=== PATIENT | male | born 1945 | race Caucasian/White ===

== ENCOUNTER 2020-06-18 08:12 | Outpatient (CLI) | payer MEDICARE ==
--- NOTE | 2020-06-18 15:59 | MRI Report ---
PROCEDURE: Shoulder RT W/O INDICATIONS: RT SHLDR PAIN TECHNIQUE: Noncontrast oblique coronal T2 fast spin echo with fat saturation, oblique sagittal T1 spin echo and T2 fast spin echo with fat saturation, axial T1 spin echo and T2 fast spin echo with fat saturation t hrough the shoulder. COMPARISON: None. FINDINGS: Image quality: Excellent. Rotator cuff: Full thickness tearing of the anterior and mid supraspinatus tendon, which demonstrates medial retraction and atrophy. There are a few intact fibers of posterior per spinatus tendon which demonstrates low-grade partial-thickness articular surface tearing. There is mild T2 signal elevation throughout the anterior, mid, and posterior infraspinatus tendon at the humeral insertion site exten ding to the muscular tendinous junction, indicating tendinopathy. There is low-grade partial thicknes s articular surface tearing of the anterior and mid infraspinatus tendon at the humeral insertion sit e extending to the muscular tendinous junction. There is moderate grade partial-thickness articular s urface tearing of the superior and mid subscapularis tendon at the humeral insertion site extending t o the musculotendinous junction. Moderate subscapularis atrophy is present. Bones and bursae: No bone marrow contusions or fractures. Superior subluxation of the humeral head. Moderate acromioclavicular joint degeneration. The acromion demonstrates conventional anatomy, witho ut an os acromiale. No pathologic subacromial/subdeltoid bursal fluid is present. Capsule and soft tissues: Diffuse degenerative fraying of the glenoid labrum is present. The long hea d of the biceps tendon demonstrates full thickness tearing. The rotator interval appears normal, with out fibrosis. The coracohumeral ligament is normal in thickness. IMPRESSION: 1. Full-thickness tearing of most of the supraspinatus tendon, which demonstrates medial retraction a nd atrophy. 2. Infraspinatus tendinopathy with superimposed partial thickness tearing. 3. Moderate grade tearing of the mid/upper scapularis tendon with associated atrophy. 4. Biceps tendon tear. 5. Acromioclavicular joint osteoarthritis. 6. Diffuse degenerative fraying of the glenoid labrum. Reviewed by: Rich Raya MD on 06/18/2020 3:58 PM PST Approved by: Rich Raya MD on 06/18/2020 3:58 PM PST Station ID: [id number]
--- NOTE | 2020-06-18 16:07 | MRI Report ---
PROCEDURE: Upper Arm/Humerus RT W/O INDICATIONS: RT UPPER ARM PAIN TECHNIQUE: Noncontrast coronal and sagittal T1 spin echo and STIR; axial T1 spin echo and T2 fast spin echo with fat saturation through the right humerus. COMPARISON: MRI right shoulder dated same day. FINDINGS: Image quality: Excellent. Bones: The visualized bone marrow demonstrates normal signal on all sequences. The overlying cortex appears intact. No fractures lines or intra-osseous lesions. Soft tissues: There is fluid in the region of the long head biceps tendon of the level of the should er although this is only partially visualized. Heterotopic ossification seen in the region of the com mon extensor origin There is geographic mild edema involving the biceps muscle belly. Subcutaneous tissues appear normal as well. No soft tissue masses are present. IMPRESSION: Unremarkable appearance of the humerus. Prominent fluid in the expected region of the long head biceps tendon at the level of the shoulder ra ising possibility of rupture. Please see comparison shoulder MRI from same day. Mild biceps muscle edema raising possibility of low-grade strain, versus myositis or denervation. 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 Reviewed by: Curly Aparicio MD on 06/18/2020 4:06 PM PST Approved by: Curly Aparicio MD on 06/18/2020 4:06 PM PST Station ID: [id number]
== END 2020-06-18 08:13 | disposition home or self-care (01) ==
LOC: DI 08:12
PROVIDERS: ATTEND Nurse Practitioner Family
DX: S46.021A Laceration of muscle(s) and tendon(s) of the rotator cuff of right shoulder, initial encounter (principal); S46.821A Laceration of other muscles, fascia and tendons at shoulder and upper arm level, right arm, initial encounter; S46.221A Laceration of muscle, fascia and tendon of other parts of biceps, right arm, initial encounter; M19.011 Primary osteoarthritis, right shoulder; S43.431A Superior glenoid labrum lesion of right shoulder, initial encounter

== ENCOUNTER 2020-07-15 08:54 | Outpatient (CLI) | payer MEDICARE ==
--- NOTE | 2020-07-15 09:36 | XRAY Report ---
PROCEDURE: Shoulder 3 View RT INDICATIONS: R SHOULDER PX TECHNIQUE: 4 views of the shoulder were acquired. COMPARISON: Right shoulder MRI 06/18/2020 FINDINGS: Bones: Moderate osteoarthritic change of the glenohumeral and acromioclavicular joints. Markedly elev ated right humeral head indicative of chronic rotator cuff tear. No fractures or dislocations. No portillo spicious bony lesions. Visualized ribs appear intact. Soft tissues: No suspicious soft tissue calcifications. IMPRESSION: Findings of chronic rotator cuff tear and moderate osteoarthritis of both glenohumeral a nd acromio clavicular joints. Reviewed by: Paulie Pak MD on 07/15/2020 9:35 AM PST Approved by: Paulie Pak MD on 07/15/2020 9:35 AM PST Station ID: [id number]
== END 2020-07-15 23:59 | disposition home or self-care (01) ==
LOC: DI.N 08:54
PROVIDERS: ATTEND Orthopaedic Surgery
DX: M19.011 Primary osteoarthritis, right shoulder (principal); M75.101 Unspecified rotator cuff tear or rupture of right shoulder, not specified as traumatic

== ENCOUNTER 2020-07-22 09:27 | Outpatient (CLI) | payer MEDICARE ==
[2020-07-22 11:52] LABS: BASOPHILS # (AUTO) 0.1 10^3/uL (0.0-0.1); BASOPHILS % (AUTO) 1.4 %; EOSINOPHILS # (AUTO) 0.3 10^3/uL (0.0-0.7); EOSINOPHILS % (AUTO) 4.1 %; HGB - HEMOGLOBIN 15.6 g/dL (14.0-18.0); LYMPHOCYTES # (AUTO) 1.8 10^3/uL (1.5-3.5); LYMPHOCYTES % (AUTO) 26.5 %; MEAN CORPUSCULAR HEMOGLOBIN 30.8 pg (27.0-31.0); MEAN CORPUSCULAR HGB CONC 33.3 g/dL (32.0-36.0); MEAN CORPUSCULAR VOLUME 92.3 fL (80.0-94.0); MEAN PLATELET VOLUME 11.2 fL (7.4-11.4); MONOCYTES # (AUTO) 0.6 10^3/uL (0.0-1.0); MONOCYTES % (AUTO) 9.2 %; NEUTROPHILS # (AUTO) 3.9 10^3/uL (1.5-6.6); NEUTROPHILS % (AUTO) 58.6 %; PLT - PLATELET COUNT 183 10^3/uL (130-450); RED BLOOD COUNT 5.07 10^6/uL (4.70-6.10); RED CELL DISTRIBUTION WIDTH 13.8 % (12.0-15.0); WHITE BLOOD COUNT 6.6 x10^3/uL (4.8-10.8)
[2020-07-22 12:38] LABS: ALBUMIN 4.4 g/dL (3.2-5.5); ALBUMIN/GLOBULIN RATIO 1.7 (1.0-2.2); ALKALINE PHOSPHATASE 38 IU/L (42-121); ALT ALANINE AMINOTRANSFERASE 21 IU/L (10-60); AST ASPARTATE AMINOTRANSFERASE 20 IU/L (10-42); BUN - BLOOD UREA NITROGEN 21 mg/dL (6-20); CALCIUM 9.9 mg/dL (8.5-10.3); CARBON DIOXIDE - CO2 29 mmol/L (21-32); CHLORIDE 102 mmol/L (101-111); CHOL/HDL RATIO 4.1 (<5.0); CHOLESTEROL 150 mg/dL; GLUCOSE 113 mg/dL (70-100); HDL CHOLESTEROL 37 mg/dL; LDL CHOLESTEROL,CALCULATED 87 mg/dL; LDL/HDL RATIO 2.4 (<3.6); SODIUM 139 mmol/L (135-145); VLDL CHOLESTEROL 26 mg/dL
== END 2020-07-22 23:59 | disposition home or self-care (01) ==
LOC: LAB.WCP 09:27
PROVIDERS: ATTEND Nurse Practitioner Family
DX: F32.9 Major depressive disorder, single episode, unspecified (principal); I10 Essential (primary) hypertension; E78.5 Hyperlipidemia, unspecified
CPT/HCPCS: 36415; 80053; 80061; 83721; 84443; 85025

== ENCOUNTER 2021-05-10 08:00 | Outpatient (CLI) | payer MEDICARE ==
[2021-05-10 11:59] LABS: BASOPHILS # (AUTO) 0.1 10^3/uL (0.0-0.1); BASOPHILS % (AUTO) 1.3 %; EOSINOPHILS # (AUTO) 0.4 10^3/uL (0.0-0.7); EOSINOPHILS % (AUTO) 5.2 %; HCT - HEMATOCRIT 46.2 % (42.0-52.0); HGB - HEMOGLOBIN 15.5 g/dL (14.0-18.0); LYMPHOCYTES # (AUTO) 1.6 10^3/uL (1.5-3.5); LYMPHOCYTES % (AUTO) 22.7 %; MEAN CORPUSCULAR HEMOGLOBIN 31.3 pg (27.0-31.0); MEAN CORPUSCULAR HGB CONC 33.5 g/dL (32.0-36.0); MEAN CORPUSCULAR VOLUME 93.1 fL (80.0-94.0); MEAN PLATELET VOLUME 11.5 fL (7.4-11.4); MONOCYTES # (AUTO) 0.7 10^3/uL (0.0-1.0); MONOCYTES % (AUTO) 9.6 %; NEUTROPHILS # (AUTO) 4.2 10^3/uL (1.5-6.6); NEUTROPHILS % (AUTO) 60.9 %; PLT - PLATELET COUNT 181 10^3/uL (130-450); RED BLOOD COUNT 4.96 10^6/uL (4.70-6.10); RED CELL DISTRIBUTION WIDTH 13.8 % (12.0-15.0); WHITE BLOOD COUNT 6.9 x10^3/uL (4.8-10.8)
[2021-05-10 12:01] LABS: BILIRUBIN,URINE NEGATIVE (NEGATIVE); GLUCOSE, URINE (UA) NEGATIVE (NEGATIVE); KETONES,URINE (UA) NEGATIVE (NEGATIVE); LEUKOCYTE ESTERASE, URINE NEGATIVE (NEGATIVE); NITRITE,URINE NEGATIVE (NEGATIVE); OCCULT BLOOD,URINE NEGATIVE (NEGATIVE); PROTEIN,URINE NEGATIVE (NEGATIVE); UROBILINOGEN,URINE 0.2 (NORMAL) E.U./dL (NORMAL)
[2021-05-10 12:15] LABS: CLARITY,URINE CLEAR (CLEAR)
[2021-05-10 12:17] LABS: BACTERIA,URINE Few /HPF (None Seen); RBC,URINE 0-5 /HPF (0-5); SQUAMOUS EPITHELIAL CELL,UR FEW Squamous (<= Few); WBC,URINE 0-3 /HPF (0-3)
[2021-05-10 12:25] LABS: THYROID STIMULATING HORMONE 2.43 uIU/mL (0.34-5.60)
[2021-05-10 12:38] LABS: ALBUMIN 4.5 g/dL (3.2-5.5); ALBUMIN/GLOBULIN RATIO 1.7 (1.0-2.2); ALKALINE PHOSPHATASE 40 IU/L (42-121); ALT ALANINE AMINOTRANSFERASE 30 IU/L (10-60); AST ASPARTATE AMINOTRANSFERASE 24 IU/L (10-42); BILIRUBIN,TOTAL 0.9 mg/dL (0.2-1.0); BUN - BLOOD UREA NITROGEN 19 mg/dL (6-20); CALCIUM 9.9 mg/dL (8.5-10.3); CARBON DIOXIDE - CO2 29 mmol/L (21-32); CHLORIDE 102 mmol/L (101-111); CHOL/HDL RATIO 4.1 (<5.0); CHOLESTEROL 163 mg/dL; CREATININE 0.9 mg/dL (0.6-1.2); GFR - MDRD 83 (>89); GLUCOSE 134 mg/dL (70-100); HDL CHOLESTEROL 40 mg/dL; LDL CHOLESTEROL,CALCULATED 99 mg/dL; LDL/HDL RATIO 2.5 (<3.6); POTASSIUM 3.9 mmol/L (3.5-5.0); SODIUM 139 mmol/L (135-145); TOTAL PROTEIN 7.2 g/dL (6.7-8.2); TRIGLYCERIDES 121 mg/dL; VLDL CHOLESTEROL 24 mg/dL
== END 2021-05-10 23:59 | disposition home or self-care (01) ==
LOC: LAB.WCP 08:00
PROVIDERS: ATTEND Nurse Practitioner
DX: I10 Essential (primary) hypertension (principal); E78.5 Hyperlipidemia, unspecified; R41.3 Other amnesia
CPT/HCPCS: 36415; 80053; 80061; 81001; 82607; 83721; 84443; 85025; 87086

== ENCOUNTER 2021-05-18 08:00 | Outpatient (CLI) | payer MEDICARE ==
[2021-05-18 12:44] LABS: ESTIMATED AVERAGE GLUCOSE 131 mg/dL (70-100); HEMOGLOBIN A1c% 6.2 % (4.27-6.07)
== END 2021-05-18 23:59 ==
LOC: LAB.N 08:00
PROVIDERS: ATTEND Nurse Practitioner Family
DX: G62.9 Polyneuropathy, unspecified (principal); Z68.33 Body mass index [BMI] 33.0-33.9, adult
CPT/HCPCS: 36415; 83036

== ENCOUNTER 2021-08-24 09:01 | Outpatient (CLI) | payer MEDICARE ==
[2021-08-24 09:25] LABS: CALCIUM 9.4 mg/dL (8.5-10.3); CREATININE 0.9 mg/dL (0.6-1.2)
[2021-08-24 09:47] LABS: MICROALBUM/CREATININE RATIO,UR 5.6 ug/mg (<30.0); MICROALBUMIN,URINE 1.2 mg/dL (0-300.0)
[2021-08-24 12:11] LABS: ESTIMATED AVERAGE GLUCOSE 137 mg/dL (70-100); HEMOGLOBIN A1c% 6.4 % (4.27-6.07)
== END 2021-08-24 09:02 | disposition home or self-care (01) ==
LOC: LAB 09:01
PROVIDERS: ATTEND Nurse Practitioner
DX: E11.9 Type 2 diabetes mellitus without complications (principal)
CPT/HCPCS: 36415; 80048; 82043; 82570; 83036

== ENCOUNTER 2021-09-21 08:51 | Outpatient (CLI) | payer MEDICARE | END 2021-09-21 08:52 | disposition home or self-care (01) | LOC: LAB 08:51 | PROVIDERS: ATTEND Nurse Practitioner | DX: E11.9 Type 2 diabetes mellitus without complications (principal); G62.9 Polyneuropathy, unspecified | CPT/HCPCS: 36415; 82607; 83921 ==

== ENCOUNTER 2021-11-23 08:05 | Outpatient (CLI) | payer MEDICARE ==
[2021-11-23 08:41] LABS: CALCIUM 9.6 mg/dL (8.5-10.3); POTASSIUM 3.8 mmol/L (3.5-5.0)
[2021-11-23 09:00] LABS: THYROID STIMULATING HORMONE 2.81 uIU/mL (0.34-5.60)
[2021-11-23 12:32] LABS: ESTIMATED AVERAGE GLUCOSE 134 mg/dL (70-100); HEMOGLOBIN A1c% 6.3 % (4.27-6.07)
== END 2021-11-23 08:06 | disposition home or self-care (01) ==
LOC: LAB 08:05
PROVIDERS: ATTEND Nurse Practitioner Family
DX: E11.9 Type 2 diabetes mellitus without complications (principal); R41.3 Other amnesia
CPT/HCPCS: 36415; 80048; 82607; 83036; 84443

== ENCOUNTER 2022-03-23 09:30 | Outpatient (CLI) | payer MEDICARE ==
[2022-03-23 16:30] LABS: ESTIMATED AVERAGE GLUCOSE 140 mg/dL (70-100); HEMOGLOBIN A1c% 6.5 % (4.27-6.07)
== END 2022-03-23 09:31 | disposition home or self-care (01) ==
LOC: LAB 09:30
PROVIDERS: ATTEND Nurse Practitioner
DX: E11.9 Type 2 diabetes mellitus without complications (principal)
CPT/HCPCS: 36415; 83036

== ENCOUNTER 2022-06-23 08:29 | Outpatient (CLI) | payer MEDICARE ==
[2022-06-23 11:34] LABS: ESTIMATED AVERAGE GLUCOSE 140 mg/dL (70-100); HEMOGLOBIN A1c% 6.5 % (4.27-6.07)
== END 2022-06-23 08:30 | disposition home or self-care (01) ==
LOC: LAB 08:29
PROVIDERS: ATTEND Nurse Practitioner
DX: E11.9 Type 2 diabetes mellitus without complications (principal)
CPT/HCPCS: 36415; 83036

== ENCOUNTER 2022-09-22 09:16 | Outpatient (CLI) | payer MEDICARE ==
[2022-09-22 13:34] LABS: ESTIMATED AVERAGE GLUCOSE 137 mg/dL (70-100); HEMOGLOBIN A1c% 6.4 % (4.27-6.07)
== END 2022-09-22 09:17 | disposition home or self-care (01) ==
LOC: LAB 09:16
PROVIDERS: ATTEND Nurse Practitioner
DX: E11.9 Type 2 diabetes mellitus without complications (principal)
CPT/HCPCS: 36415; 83036

== ENCOUNTER 2022-12-29 07:56 | Outpatient (CLI) | payer MEDICARE ==
[2022-12-29 09:33] LABS: ESTIMATED AVERAGE GLUCOSE 137 mg/dL (70-100); HEMOGLOBIN A1c% 6.4 % (4.27-6.07)
== END 2022-12-29 07:57 | disposition home or self-care (01) ==
LOC: LAB 07:56
PROVIDERS: ATTEND Nurse Practitioner
DX: E11.9 Type 2 diabetes mellitus without complications (principal)
CPT/HCPCS: 36415; 83036

== ENCOUNTER 2022-12-30 15:02 | Outpatient (CLI) | payer MEDICARE, OTHER ==
--- NOTE | 2022-12-30 19:01 | XRAY Report ---
PROCEDURE: Finger(s) RT INDICATIONS: LACERATION W/O FOREIGN BODY OF RT FINGER W/O DAMAG TECHNIQUE: AP hand, 2 views of the right fourth finger(s) acquired. COMPARISON: None. FINDINGS: Bones: Heterogeneous mineralization. Mild asymmetric reticular joint space loss and scattered margin al spurring. Third MCP arthrodesis. Mildly comminuted, nondisplaced crush fracture of the fourth distal phalanx tuft with a fracture plan e extending approximately to nearly the articular surface. Soft tissues: No visible foreign bodies. No suspicious soft tissue calcifications. IMPRESSION: 1. Comminuted crush fracture of the fourth distal phalanx with close, but not definite fracture plane extension to the articular surface. 2. No foreign bodies in the soft tissues of the fourth digit. 3. Chronic polyarticular arthritic changes and third MCP surgical change. Reviewed by: Jessica Mahan MD on 12/30/2022 7:00 PM PDT Approved by: Jessica Mahan MD on 12/30/2022 7:00 PM PDT Station ID: [id number]
== END 2022-12-30 15:03 | disposition home or self-care (01) ==
LOC: DI 15:02
PROVIDERS: ATTEND Physician Assistant Medical
DX: S62.634A Displaced fracture of distal phalanx of right ring finger, initial encounter for closed fracture (principal); M19.041 Primary osteoarthritis, right hand

== ENCOUNTER 2023-06-26 07:56 | Outpatient (CLI) | payer MEDICARE ==
[2023-06-26 08:14] LABS: BASOPHILS # (AUTO) 0.1 10^3/uL (0.0-0.1); BASOPHILS % (AUTO) 1.1 %; EOSINOPHILS # (AUTO) 0.3 10^3/uL (0.0-0.7); HCT - HEMATOCRIT 46.9 % (42.0-52.0); HGB - HEMOGLOBIN 15.5 g/dL (14.0-18.0); LYMPHOCYTES # (AUTO) 2.1 10^3/uL (1.5-3.5); LYMPHOCYTES % (AUTO) 26.6 %; MEAN CORPUSCULAR HEMOGLOBIN 30.4 pg (27.0-31.0); MEAN PLATELET VOLUME 10.3 fL (7.4-11.4); MONOCYTES # (AUTO) 0.7 10^3/uL (0.0-1.0); MONOCYTES % (AUTO) 8.6 %; NEUTROPHILS # (AUTO) 4.7 10^3/uL (1.5-6.6); NEUTROPHILS % (AUTO) 59.3 %; PLT - PLATELET COUNT 185 10^3/uL (130-450); RED CELL DISTRIBUTION WIDTH 14.5 % (12.0-15.0); WHITE BLOOD COUNT 7.9 x10^3/uL (4.8-10.8)
[2023-06-26 08:46] LABS: CREATININE,URINE 238.8 mg/dL; MICROALBUM/CREATININE RATIO,UR 10.5 ug/mg (<30.0); MICROALBUMIN,URINE 2.5 mg/dL
[2023-06-26 08:47] LABS: ALBUMIN 4.2 g/dL (3.2-5.5); ALBUMIN/GLOBULIN RATIO 1.6 (1.0-2.2); ALKALINE PHOSPHATASE 46 IU/L (42-121); ALT ALANINE AMINOTRANSFERASE 20 IU/L (10-60); AST ASPARTATE AMINOTRANSFERASE 15 IU/L (10-42); BILIRUBIN,TOTAL 0.7 mg/dL (0.2-1.0); BUN - BLOOD UREA NITROGEN 20 mg/dL (6-20); CALCIUM 9.9 mg/dL (8.5-10.3); CARBON DIOXIDE - CO2 28 mmol/L (21-32); CHLORIDE 105 mmol/L (101-111); CHOL/HDL RATIO 3.4 (<5.0); CHOLESTEROL 132 mg/dL; CREATININE 0.8 mg/dL (0.6-1.3); GFR - MDRD 94 (>89); GLUCOSE 128 mg/dL (74-104); HDL CHOLESTEROL 39 mg/dL; LDL CHOLESTEROL,CALCULATED 65 mg/dL; LDL/HDL RATIO 1.7 (<3.6); POTASSIUM 3.7 mmol/L (3.5-4.5); SODIUM 140 mmol/L (135-145); TOTAL PROTEIN 6.8 g/dL (6.4-8.9); TRIGLYCERIDES 140 mg/dL (48-352); VLDL CHOLESTEROL 28 mg/dL
[2023-06-26 12:04] LABS: ESTIMATED AVERAGE GLUCOSE 120 mg/dL (70-100); HEMOGLOBIN A1c% 5.8 % (4.27-6.07)
== END 2023-06-26 07:57 | disposition home or self-care (01) ==
LOC: LAB 07:56
PROVIDERS: ATTEND Nurse Practitioner
DX: I10 Essential (primary) hypertension (principal); E78.5 Hyperlipidemia, unspecified; E11.9 Type 2 diabetes mellitus without complications; R41.3 Other amnesia; Z12.5 Encounter for screening for malignant neoplasm of prostate; G62.9 Polyneuropathy, unspecified
CPT/HCPCS: 36415; 80053; 80061; 82043; 82570; 82607; 83036; 85025; G0103; 83721; 84153

== ENCOUNTER 2024-02-26 07:34 | Outpatient (CLI) | payer MEDICARE ==
[2024-02-26 09:32] LABS: ESTIMATED AVERAGE GLUCOSE 120 mg/dL (70-100); HEMOGLOBIN A1c% 5.8 % (4.27-6.07)
== END 2024-02-26 07:35 | disposition home or self-care (01) ==
LOC: LAB 07:34
PROVIDERS: ATTEND Nurse Practitioner
DX: E11.9 Type 2 diabetes mellitus without complications (principal)
CPT/HCPCS: 36415; 83036

== ENCOUNTER 2024-03-06 13:08 | Outpatient (CLI) | payer MEDICARE ==
--- NOTE | 2024-03-06 14:56 | XRAY Report ---
PROCEDURE: Knee 4+V LT INDICATIONS: KNEE PAIN, LEFT TECHNIQUE: 4 views of the knee(s) were acquired. COMPARISON: None. FINDINGS: Bones: No fractures or dislocations. Tricompartmental osteoarthritic changes with osteophytosis and moderate medial compartment joint space narrowing. No suspicious bony lesions. Soft tissues: No knee joint effusion. No suspicious soft tissue calcifications or masses. Atheroscl erotic vascular ossifications. IMPRESSION: No acute bony abnormality. Moderate osteoarthritic changes of the knee, most pronounced within the me dial compartment. Reviewed by: Albin Rivera MD on 03/06/2024 2:54 PM PDT Approved by: Albin Rivera MD on 03/06/2024 2:54 PM PDT Station ID: [id number]
== END 2024-03-06 13:09 | disposition home or self-care (01) ==
LOC: DI.N 13:08
PROVIDERS: ATTEND Nurse Practitioner
DX: M17.12 Unilateral primary osteoarthritis, left knee (principal)

== ENCOUNTER 2025-06-03 06:30 | Inpatient (IN) ==
[2025-06-03] MEDS: LACTATED RINGERS 1,000 ML IV PRN (06:39)
--- NOTE | 2025-06-03 07:12 | OPERATIVE REPORT ---
Operative Report General Procedure Data: Operation Date: 06/03/25 07:30 Proposed Procedures p RIGHT shoulder irrigation and debridement(Right) - Zbigniew Martinez, Anesthesia Type General Pre-Op Diagnosis: Right Shoulder Surgical wound delayed healing and seroma Post Op Diagnosis: Right shoulder surgical wound infection Other Other Information/Narrative: DATE OF SURGERY: 06-03-25 SURGEON: Zbigniew Martinez CAN WORKER: JUWAN Mishra. Early Childhood Teacher Assistant was needed for help with positioning of the patient and extremity during surgery and holding retraction during surgery as part of the covarrubias portions of the procedure. PREOPERATIVE DIAGNOSIS: right shoulder delayed wound healing; right shoulder seroma POSTOPERATIVE DIAGNOSIS: Right shoulder surgical wound infection. PROCEDURES PERFORMED: Right shoulder irrigation and debridement ANESTHESIA: General plus local ESTIMATED BLOOD LOSS: approximately 25cc IMPLANT: none implanted or exchanged. COMPLICATIONS: None SPECIMEN: intra operative deep space cultures of the right shoulder (aerobic and anaerobic) DISPOSITION: PACU INDICATIONS FOR PROCEDURE: 79 year old male s/p revision shoulder arthroplasty by Dr Celestino Bustillo approximately 2 weeks ago presented to the clinic yesterday for follow up with persistent wound drainage and erythema. he had stable vitals and normal WBC but subjectively reported episodes of chills at home. Given the persistent wound drainage and concern for possible infection, we mutually agreed for surgical irrigation and debridement to at minimum facilitate wound healing but also to inspect for signs of developing infection and perform debridement if indicated. I described the usual risks of surgery including nerve injury, tendon injury, infection, stiffness, dislocation, fracture, persistence of pain, and need for further surgery and the patient consented to proceed. PROCEDURE IN DETAIL: I saw the patient in the preoperative holding area, where the operative site was marked. Consents were reviewed and the questions were answered to the patient. They were then taken back to the operating room and placed supine on the OR table with all bony prominences padded. The patient was then repositioned into the beach chair position and the arm and shoulder were prepped and draped in standard sterile fashion. Time-out was performed and preoperative antibiotics were given. Utilizing the previous incision which was partially open already I explored the surgical wound. I extended this a centimeter or 2 distally but otherwise to use the entirety of the pre-existing incision. The deltopectoral interval which was previously developed was readily evident and was identified. At this time dishwater thick fluid mixed with serosanguineous fluid was encountered which was concerning for early purulence and infection. Cultures were taken at this time. Next the prosthesis itself was identified which was found to be stable. There was a small branch of the anterior humeral circumflex vein that was tied with 0 silk as this appeared to be bleeding. The remainder of the wound had good hemostasis. We then proceeded with the debridement and thorough irrigation. I debrided any necrotic appearing tissue within the surgical wound and the majority appeared healthy. There was no apparent biofilm over the implants. We performed a thorough debridement and irrigation using a total of 7 L of sterile saline and additional 3 L of Betadine diluted saline and a bottle of Irrisept. Once thorough irrigation and debridement was complete we pulled off the first layer of our double drapes and changes to new gloves, new sterile instrumenation and suction for closure. We then irrigated the wound once more and closed the deltopectoral interval with a 0 PDS. We then closed the subcutaneous layer with 2-0 Monocryl and skin with interrupted vertical mattress nylon and geneva. Sterile Prineo Incisional wound vac was placed to facilitate wound healing and maintain sterility for expected drainage. patient was awakened from anesthesia and placed in a sling and taken to the postoperative care unit in stable condition. POSTOPERATIVE COURSE: Patient will have a planned overnight st so he can remain on IV antibiotics. I did discuss this case with the hospitalist who agreed to assist during his admission. Given that we did encounter signs of infection intraoperatively, I do think he would benefit from a PICC line and long-term IV antibiotics. Cultures results will be followed though he may likely discharge on a empiric broad-spectrum antibiotic with good staph and C. acnes coverage such as daptomycin which I discussed with the hospitalist team. The Prevena wound VAC is to remain in place for at least the first 7 days and the patient will likely follow-up in the orthopedic office next week at which time the dressing may be changed or continued depending on appearance. Shoulder can remain in the sling for comfort but I encouraged him to use his elbow hand and wrist for light movements. He could begin some gentle pendulum exercises as well for the shoulder. I called the patient's at the end of the procedure and discussed the findings and my recommendations. All their questions were answered.
[2025-06-03] MEDS ORDERED: BUPIVACAINE 0.5%-EPI 1:200000 PF 10 ML VIAL ONE (07:26)
[2025-06-03] MEDS ORDERED: fentaNYL 100 MCG/2 ML VIAL ONE (07:29)
[2025-06-03] MEDS ORDERED: MIDAZOLAM 2 MG/2 ML VIAL ONE (07:29)
[2025-06-03] MEDS ORDERED: ROCURONIUM 50 MG/5 ML VIAL ONE (07:30)
[2025-06-03] MEDS ORDERED: ONDANSETRON 4 MG/2 ML VIAL ONE (07:30)
[2025-06-03] MEDS ORDERED: ePHEDrine 50 MG/ML VIAL IVP PRN (07:36)
[2025-06-03] MEDS ORDERED: ATROPINE ABBOJECT 1 MG/10 ML SYRINGE IVP PRN (07:36)
[2025-06-03] MEDS ORDERED: NALOXONE 0.4 MG/ML VIAL IVP PRN (07:36)
[2025-06-03] MEDS ORDERED: fentaNYL 100 MCG/2 ML VIAL IVP PRN (07:36)
[2025-06-03] MEDS ORDERED: HYDROmorphone 0.5 MG/0.5 ML SYRINGE IVP PRN ×2 (07:36→14:10)
[2025-06-03] MEDS ORDERED: MORPHINE 2 MG/ML CARPUJECT IVP PRN (07:36)
[2025-06-03] MEDS ORDERED: METOCLOPRAMIDE 10 MG/2 ML VIAL IVP PRN (07:36)
[2025-06-03] MEDS ORDERED: ONDANSETRON 4 MG/2 ML VIAL IVP PRN ×2 (07:36→10:54)
--- NOTE | 2025-06-03 07:36 | ANESTHESIA PROCEDURE NOTE ---
Pre-Anesthesia VS, & Labs Diagnosis Surgical Diagnosis:: R shoulder infection? Procedure Procedure: R shoulder I&D Vitals Vital Signs: Temp Pulse Resp BP Pulse Ox 36.4 C L 63 23 137/90 H 96 06/03/25 06:57 06/03/25 06:57 06/03/25 06:57 06/03/25 07:15 06/03/25 06:57 NPO NPO: >8 hours Lab Results Current Lab Results: Laboratory Tests 06/03/25 07:12: POC Whole Bld Glucose 141 Meds/Allgy Home Medications Ambulatory Orders Medication Instructions Recorded Confirmed aspirin 81 mg tablet,delayed 81 mg PO DAILY 06/17/24 1 08/03/24 release (Adult Low Dose Aspirin) multivitamin (Daily Multi-Vitamin 1 tab PO DAILY 06/1706/03/25 tablet) atorvastatin 40 mg tablet (Lipitor) 40 mg PO QPM #90 t abs 09/02/24 06/03/25 citalopram 20 mg tablet 20 mg PO QDAY #90 tabs 09/0206/03/25 hydrochlorothiazide 25 mg tablet 25 mg PO DAILY #90 ta bs 09/02/24 06/03/25 propranolol 120 mg capsule,24 120 mg PO DAILY #90 caps 09/02/24 06/03/25 hr,extended release (Inderal LA) vitamin D3 125 mcg (5,000 1 cap PO DAILY 03/16/2505/10 unit)-vitamin K2 100 mcg capsule oxycodone-acetaminophen 10 mg-325 1 tab PO Q8H PRN marybel n #30 tabs 04/01/25 06/03/25 mg tablet glipizide 2.5 mg tablet, extended 2.5 mg PO QDAY #90 t abs 05/11/25 06/03/25 release 24 hr carbidopa ER 25 mg-levodopa 100 mg 1 tab PO BID 06/03/25 tablet,extended release cephalexin 500 mg capsule 500 mg PO TID #10 caps 05/2806/03/25 Allergies Allergies Allergy/AdvReac Type Severity Reaction Status Date / Time No Known Drug Allergies Allergy Verified 06/03/25 06:36 PFSH Active Problems All Active Problems Bleeding from surgical wound (Acute) Post-op bleeding (Acute) Loosening of shoulder joint prosthesis (Acute) Therapeutic drug monitoring (Acute) Parkinsonian features (Acute) Rotator cuff arthropathy of right shoulder (Chronic) 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) Peripheral neuropathy (Chronic) Obesity (Chronic) Depression (Chronic) Essential tremor (Chronic) Mild cognitive impairment (Chronic) Tinnitus (Chronic) Type 2 diabetes mellitus (Chronic) Benign positional vertigo (Chronic) Knee pain, left (Chronic) Foot callus (Chronic) Essential hypertension, benign (Chronic) Hyperlipidemia (Chronic) Obstructive sleep apnea of adult (Chronic) Medical History Medical History Cataract Tear of supraspinatus tendon Surgical History Surgical History History of tonsillectomy S/P right rotator cuff repair [place] teeth removed Family History Family History Father No problems noted. Sister Sleep apnea Brother Sleep apnea Social History Social History Smoking Status: Never smoker Second hand tobacco smoke exposure: No Do you dip or chew tobacco?: No Do you vape?: No Living arrangement: At home Marital Status: Living Condition: With spouse/s.o. Support Person: Yes Physical Activity: Gardening Level: Independent Do you feel safe in your home environment?: Yes History of physical, verbal, emotional, or financial abuse?: No ETOH Use: None Substance Use: denies use Retired: Yes POLST POLST CPR Status: Attempt Resuscitation (CPR) Level of Medical Intervention: Full Treatment Anesthesia Exam (Expanded) Exam General: Alert, Oriented x3 and Cooperative Dental: WNL Mouth Openin Fingerbreadth Neck Mobility: Normal Mallampati classification: II Exam Exam Vital Signs: Vital Signs x48h Temp Pulse Resp BP Pulse Ox 06/03/25 07:15 137/90 H 06/03/25 06:57 36.4 C L 63 23 194/96 H 96 Plan Plan Anesthesia Type: General Consent for Procedure(s) Verified and Reviewed: Yes Code Status: Attempt Resuscitation ASA Classification ASA classification: 3-Severe systemic disease Is this case an emergency?: No
[2025-06-03] MEDS ORDERED: TRANEXAMIC ACID 1,000 MG/10 ML VIAL ONE (08:11)
[2025-06-03] MEDS ORDERED: HYDROmorphone 1 MG/ML CARPUJECT ONE (08:26)
[2025-06-03] MEDS ORDERED: ACETAMINOPHEN 1,000 MG/100 ML 1,000 MG/100 ML BAG IV ONE (08:27)
[2025-06-03] MEDS ORDERED: TRANEXAMIC ACID IN NACL 1,000 MG/100 ML BAG IV ONE (08:29)
[2025-06-03] MEDS ORDERED: ePHEDrine 50 MG/ML VIAL IVP ONE (09:03)
[2025-06-03] MEDS ORDERED: SUGAMMADEX 200 MG/2 ML VIAL IVP ONE (09:14)
[2025-06-03] MEDS ORDERED: KETOROLAC 30 MG/ML VIAL ONE (09:31)
[2025-06-03] MEDS: ceFAZolin (2G) 2 GM in SODIUM CHLORIDE 0.9% MINIBAG 100 ML IV STA (10:42)
[2025-06-03] MEDS: LACTATED RINGERS 1,000 ML IV SCH (10:42)
[2025-06-03] MEDS ORDERED: oxyCODONE 5 MG TABLET PO PRN (10:54)
--- NOTE | 2025-06-03 11:42 | ANESTHESIA POST OP EVALUATION ---
Anesthesia Post Eval Post Anesthesia Eval Vitals: Last Vital Signs Temp 36.5 C 06/03/25 11:40 Pulse 62 06/03/25 11:40 Resp 20 06/03/25 11:40 BP 139/80 H 06/03/25 11:40 Pulse Ox 95 06/03/25 11:40 O2 Flow Rate 2 06/03/25 11:40 CV Function Including HR & BP: Stable Pain Control: Satisfactory Nausea & Vomiting: Negative Mental Status: Baseline Respiratory Status: Airway Patent Hydration Status: Satisfactory Anesthesia Complications: None
[2025-06-03] MEDS ORDERED: ACETAMINOPHEN 325 MG TABLET PO PRN (14:10)
--- NOTE | 2025-06-03 14:13 | HISTORY & PHYSICAL EXAMINATION ---
Chief Complaint Chief Complaint Chief Complaint: right shoulder incisional drainage and erythema History of Present Illness Admitted From Admitted From:: home History Obtained From Records Reviewed: ortho notes History obtained from: patient and Kylie History of Present Illness HPI Comment/Other: 04/03/2025: Right reverse total shoulder arthroplasty 05/20/2025: Revision of right shoulder arthroplasty 06/03/2025: Right shoulder irrigation and debridement 79-year-old male with past medical history of diabetes, hypertension, hyperlipidemia also with essential tremor status post above listed procedures, was seen in the orthopedics office as an outpatient yesterday. Was complaining of persistent serosanguineous drainage from the inferior aspect of the incision, saturating multiple bandages throughout the day also with subjective fever and chills. Was treated as an outpatient with 3 days of Keflex without any change to his symptomatology. After extensive discussions with the patient and his patient elected to proceed with operative washout of this prosthetic joint. This joint arthroplasty has been complicated by failure of the hardware necessitating revision of the arthroplasty approximately 6 weeks after the index procedure. This patient was in his usual state of health prior to an injury at the end of December of this year. He tripped and fell while carrying a bag of weeds sustaining a right rotator cuff injury. Was followed up with orthopedics and ultimately elected to undergo reverse total shoulder arthroplasty. Proceeded with the usual course of outpatient physical therapy but was having a lot of grinding of the joint, therefore went back to see Dr. Bustillo who obtained x-rays and noticed the failure of the prosthesis. He was then taken for revision but postoperatively had a significant amount of bleeding from the incision and then ultimately started to have serosanguineous drainage. This patient has a history of diabetes, and his arthroplasty was delayed by 1 month due to a [id number] A1c of 8.8. His hemoglobin A1c has historically been below 7. For his diabetes he takes glipizide 2.5 mg a day. He does not take metformin as he was concerned about side effects of loose stools and therefore has never tried the drug. His states that he does not follow a diabetic diet at home. Patient denies having a POLST. When asked about his CODE STATUS he said that "if the Lord wants to take me I want to go. "His Kylie is his surrogate medical decision maker. He also has 2 sons, Braulio [place] His son Braulio is a physician credentialing assistant. He lives at home with his and son. He does not smoke or drink alcohol. Meds/Allgy Home Medications Ambulatory Orders Medication Instructions Recorded Confirmed aspirin 81 mg tablet,delayed 81 mg PO DAILY 06/17/24 1 08/03/24 release (Adult Low Dose Aspirin) multivitamin (Daily Multi-Vitamin 1 tab PO DAILY 06/1706/03/25 tablet) atorvastatin 40 mg tablet (Lipitor) 40 mg PO QPM #90 t abs 09/02/24 06/03/25 citalopram 20 mg tablet 20 mg PO QDAY #90 tabs 09/0206/03/25 hydrochlorothiazide 25 mg tablet 25 mg PO DAILY #90 ta bs 09/02/24 06/03/25 propranolol 120 mg capsule,24 120 mg PO DAILY #90 caps 09/02/24 06/03/25 hr,extended release (Inderal LA) vitamin D3 125 mcg (5,000 1 cap PO DAILY 03/16/2505/10 unit)-vitamin K2 100 mcg capsule oxycodone-acetaminophen 10 mg-325 1 tab PO Q8H PRN marybel n #30 tabs 04/01/25 06/03/25 mg tablet glipizide 2.5 mg tablet, extended 2.5 mg PO QDAY #90 t abs 05/11/25 06/03/25 release 24 hr carbidopa ER 25 mg-levodopa 100 mg 1 tab PO TID 06/03/25 tablet,extended release cephalexin 500 mg capsule 500 mg PO TID #10 caps 05/2806/03/25 Allergies Allergies Allergy/AdvReac Type Severity Reaction Status Date / Time No Known Drug Allergies Allergy Verified 06/03/25 06:36 PFSH Active Problems All Active Problems (Updated 06/03/25 @ 10:36 by Zbigniew Martinez, ) Prosthetic shoulder infection (Acute) Bleeding from surgical wound (Acute) Post-op bleeding (Acute) Loosening of shoulder joint prosthesis (Acute) Therapeutic drug monitoring (Acute) Parkinsonian features (Acute) Rotator cuff arthropathy of right shoulder (Chronic) 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) Peripheral neuropathy (Chronic) Obesity (Chronic) Depression (Chronic) Essential tremor (Chronic) Mild cognitive impairment (Chronic) Tinnitus (Chronic) Type 2 diabetes mellitus (Chronic) Benign positional vertigo (Chronic) Knee pain, left (Chronic) Foot callus (Chronic) Essential hypertension, benign (Chronic) Hyperlipidemia (Chronic) Obstructive sleep apnea of adult (Chronic) Medical History Medical History Cataract Tear of supraspinatus tendon Surgical History Surgical History History of tonsillectomy S/P right rotator cuff repair [place] teeth removed Family History Family History Father No problems noted. Sister Sleep apnea Brother Sleep apnea Social History Social History Smoking Status: Never smoker Second hand tobacco smoke exposure: No Do you dip or chew tobacco?: No Do you vape?: No Living arrangement: At home Marital Status: Living Condition: With spouse/s.o. Support Person: Yes Physical Activity: Gardening Level: Independent Do you feel safe in your home environment?: Yes History of physical, verbal, emotional, or financial abuse?: No ETOH Use: None Substance Use: denies use Retired: Yes POLST Patient has POLST: No POLST on file?: No POLST CPR Status: Do Not Attempt Resuscitation (DNAR) / Allow Natural Review of Systems Status of ROS: 10 or more systems reviewed and unremarkable except as noted in history and below Prior Level of Functionality: Active and functional 79-year-old male. Exam Exam Vital Signs: Vital Signs x48h Temp Pulse Pulse Resp BP BP Pulse Ox 06/03/25 12:46 36.5 C 57 L 20 143/87 H 97 06/03/25 11:40 36.5 C 62 20 139/80 H 95 06/03/25 11:10 36.6 C 62 18 141/79 H 97 06/03/25 10:30 61 12 133/67 H 96 06/03/25 10:25 63 12 132/72 H 97 06/03/25 10:20 63 7 L 138/76 H 99 06/03/25 10:15 36.4 C L 63 7 L 142/69 H 99 06/03/25 10:10 67 14 139/67 H 90 L 06/03/25 10:05 68 14 127/58 L 98 06/03/25 10:00 63 15 119/65 100 06/03/25 09:55 62 11 L 133/65 H 99 06/03/25 09:51 36.5 C 56 L 10 L 126/65 100 O2 Flow Rate 06/03/25 12:46 2 06/03/25 11:40 2 06/03/25 11:10 2 06/03/25 10:30 2 06/03/25 10:25 06/03/25 10:20 2 06/03/25 10:15 2 06/03/25 10:10 06/03/25 10:05 7 06/03/25 10:00 7 06/03/25 09:55 7 06/03/25 09:51 Constitutional no apparent distress HENMT normocephalic Eyes conjunctivae normal Neck/C-Spine visual inspection normal Lymph no lymphadenopathy noted Chest inspection of chest normal Respiratory breath sounds equal bilaterally, normal respiratory effort and clear to auscultation bilaterally Cardiovascular normal heart rate noted Gastrointestinal abdomen normal to inspection and abdomen soft to palpation Extremities Prevena wound vac on the anterior shoulder incision. Neurology GCS 15 Psychiatry mental status grossly normal Skin skin color normal and no rash Conclusion/Plan Problem List (1) Prosthetic shoulder infection: Plan: Status post joint arthroplasty with prosthesis failure and subsequent revision. 04/03/2025: Right reverse total shoulder arthroplasty 05/20/2025: Revision of right shoulder arthroplasty 06/03/2025: Right shoulder irrigation and debridement Status post washout today. I am placing the patient empirically on vancomycin and Rocephin. Intraoperative cultures are pending. Should the patient's intraoperative cultures to be sterile we will plan for empiric coverage with daptomycin and Rocephin. Should the cultures grow something we will tailor antibiotic therapy to the organism. For the current time, patient will be maintained on vancomycin, dosing per pharmacy as well as Rocephin 1 g IV daily. Prevena wound VAC is in place on the incision. There is no erythema. There is expected swelling and ecchymosis.No leukocytosis seen on labs drawn yesterday. Discussed with Dr. Martinez of orthopedics. He will manage outpatient antibiotics. Discussed with case management today and we will make arrangements for antibiotics. RN placed PICC line today. It is functional. Low-dose aspirin for DVT prophylaxis. He will be placed on Lovenox while here in the hospital and I will recommend resumption of aspirin therapy on discharge home. (2) Type 2 diabetes mellitus with peripheral neuropathy: Plan: History of well-controlled diabetes mellitus. On glipizide 2.5 mg a day as an outpatient. Had 1 value of 8% as a POC test. This is probably spurious. It did however unfortunately delay the patient's total shoulder arthroplasty for about a month. Last hemoglobin A1c 6.6% in February of this year. I will repeat the value in the morning. Holding glipizide for this admission. Placing the patient on diabetic diet and sliding scale insulin. (3) Parkinsonian features: Plan: Chronic tremor. He is currently on a Sinemet trial. He will continue this in addition to his propranolol. (4) Essential hypertension, benign: Plan: I will resume home meds. Will place hold parameters. (5) Hyperlipidemia: Plan: Will resume home statin. Plan I have spent 90 minutes in the care of this patient today. This includes time [id number], review and ordering of diagnostic imaging and laboratory studies and consultation with other providers. Monitoring the patient's signs symptoms, evaluation of medication effectiveness and patient's response to treatment. Lab Results Lab results reviewed: Yes
[2025-06-03] MEDS: SODIUM CHLORIDE FLUSH 0.9% 10 ML SYRINGE IVP SCH (15:25)
[2025-06-03] MEDS: VANCOMYCIN INJ 2 GM in SODIUM CHLORIDE 0.9% 500 ML IV ONE (15:25)
[2025-06-03] MEDS: INSULIN LISPRO 300 UNIT/3 ML PEN SUBQ SCH (16:42)
--- NOTE | 2025-06-03 17:22 | PHARMACY PROGRESS NOTE ---
Best Possible Medication History Admit Date and Time: 06/03/25 1410 Home Medications Medication Instructions Recorded Confirmed Type aspirin 81 mg tablet,delayed 81 mg PO DAILY 06/17/24 1 08/03/24 History release (Adult Low Dose Aspirin) multivitamin (Daily Multi-Vitamin 1 tab PO DAILY 06/1706/03/25 History tablet) atorvastatin 40 mg tablet (Lipitor) 40 mg PO QPM #90 t abs 09/02/24 06/03/25 Rx hydrochlorothiazide 25 mg tablet 25 mg PO DAILY #90 ta bs 09/02/24 06/03/25 Rx propranolol 120 mg capsule,24 120 mg PO DAILY #90 caps 09/02/24 06/03/25 Rx hr,extended release (Inderal LA) vitamin D3 125 mcg (5,000 1 cap PO DAILY 03/16/2505/10 History unit)-vitamin K2 100 mcg capsule oxycodone-acetaminophen 10 mg-325 1 tab PO Q8H PRN marybel n #30 tabs 04/01/25 06/03/25 Rx mg tablet carbidopa 25 mg-levodopa 100 mg 1 tab PO TID 06/03/25 06/03/25 History tablet citalopram 20 mg tablet 20 mg PO DAILY 06/03/2505/10 History glipizide 2.5 mg tablet, extended 2.5 mg PO DAILY 05/1006/03/25 History release 24 hr Processed by: Pharmacy Medications reviewed in ED?: No Medication History completed: Yes Patient Interview: Completed (BY SURGERY RN) Secondary Source(s): Written medication list and Insurance records [facility] Statement: As the person ultimately responsible for medication therapy, providers are able to order a medication from an existing home medication list in [facility] via the "Reconcile Routine" prior to Confirmation of that medication by it desktop support specialist. Such practice is discouraged except when the physician, in their clinical judgment, deems that a medical need exists for a medication without regard to previous use.
[2025-06-03] MEDS ORDERED: PROPOFOL 200 MG/20 ML VIAL IVP ONE (17:35)
[2025-06-03 18:25] LABS: BUN - BLOOD UREA NITROGEN 21.0 mg/dL (6-20); CARBON DIOXIDE - CO2 28.0 mmol/L (21-32); CREATININE 0.9 mg/dL (0.6-1.3); GFR - MDRD 82.0 (>89)
[2025-06-03] MEDS: CARBIDOPA/LEVODOPA 25 MG/100 MG TABLET PO SCH (18:51)
--- NOTE | 2025-06-03 19:00 | PHARMACY PROGRESS NOTE ---
Vancomycin Therapy Monitoring Patient Information Vancomycin Pt Height (inches): 71 Vancomycin Patient Weight (kg): 102.8 Vanco Rx Serum Creatinine (mg/dL): 1 Vancomycin Therapy BUN (mg/dL): 21 Vancomycin Therapy Calculated Creatinine Cl (ml/min): 63 Concurrent Antibiotics: CEFTRIAXONE Vancomycin Therapy Goals Treatment Indication: JOINT INFECTION Vancomycin Target Range: Vancomycin AUC Target Range 400-600 mcg*h/ml Assessment of Current Therapy Vancomycin Loading Dose (GM, if applicable): 2G Current Vancomycin Maintenance Regimen (if applicable): 1G Q12H
[2025-06-03] MEDS: oxyCODONE 5 MG TABLET PO PRN (22:37)
[2025-06-03] MEDS: PROPRANOLOL 40 MG TABLET PO SCH (22:37)
[2025-06-03] MEDS: ATORVASTATIN 40 MG TABLET PO SCH (22:37)
[2025-06-04] MEDS: VANCOMYCIN INJ 1 GM in SODIUM CHLORIDE 0.9% 250 ML IV SCH (05:59)
[2025-06-04 06:23] LABS: HCT - HEMATOCRIT 34.0 % (42.0-52.0); HGB - HEMOGLOBIN 11.4 g/dL (14.0-18.0); MEAN PLATELET VOLUME 11.1 fL (7.4-11.4); NRBC ABSOLUTE COUNT (AUTO) 0.00 x10^3/uL; NUCLEATED RED BLOOD CELLS AUTO 0.0 /100WBC; PLT - PLATELET COUNT 191 10^3/uL (130-450); RED CELL DISTRIBUTION WIDTH 13.8 % (12.0-15.0)
[2025-06-04 06:54] LABS: BUN - BLOOD UREA NITROGEN 17.0 mg/dL (6-20); CARBON DIOXIDE - CO2 28.0 mmol/L (21-32); CREATININE 0.9 mg/dL (0.6-1.3); GFR - MDRD 82.0 (>89)
--- NOTE | 2025-06-04 06:54 | POST OP PROGRESS NOTE ---
Subjective General Admit Date: 06/03/25 Procedure Performed: right shoulder irrigation and debridement, DOS 06-03-25 Other Other Information/Narrative: postop day 1 from I&D of right rTSA. stable ,no acute events. he reports constant moderate level pain in the shoulder but denies any new numbness or tingling. had PICC line placed yesterday prevena incisional wound vac maintaining suction Ortho Surgical Progress Note Problem List Problem List: right shoulder prosthetic joint infection s/p I&D continue IV antibiotics, likely 4-6 weeks IV, could consider transition to PO depending on culture results. discussed case with hospitalist team and mutual agreement to plan for IV daptomycin and Rocephin which should have good staph and C. acnes coverage as we await definitive cultures. prevena incisional wound vac can remain in place and can be managed at home by the patient.though he was instructed to return or call the office if he has concerns. this can be evaluated in ortho clinic next week. Discharge Instructions: daily IV Antibiotics via PICC line as discussed with medical team. maintain prevena wound vac ortho clinic follow up 1 week Exam Exam Vital Signs: Vital Signs x48h Temp Pulse Resp BP Pulse Ox O2 Flow Rate 06/04/25 06:03 154/81 H 06/04/25 05:00 36.7 C 63 16 161/84 H 99 1 06/04/25 00:25 36.9 C 67 16 148/74 H 96 1 R shoulder prevena incision wound vac clean dry intact with good suction maintained. no surrounding erythema. NVI distally.
[2025-06-04] MEDS: CITALOPRAM HYDROBROMIDE 20 MG TABLET PO SCH (08:14)
[2025-06-04] MEDS: MULTIVITAMIN TABLET PO SCH (08:14)
[2025-06-04] MEDS: cefTRIAXone 1 GM VIAL IVP SCH (08:50)
--- NOTE | 2025-06-04 10:28 | PROVIDER PROGRESS NOTE ---
Subjective Prog Note Date Prog Note Date: 06/04/25 Subjective Subjective: He is still having significant pain in his shoulder, anteriorly and down into his humerus. no fevers. Current Medications Current Medications Current Medications: Current Medications Generic Name Dose Route Start Last Admin Trade Name Freq PRN Reason Stop Dose Admin Acetaminophen 650 mg 06/03/25 14:10 Acetaminophen 325 Mg Tablet PO Q4HR PRN Pain 1 to 4, or Fever Atorvastatin Calcium 40 mg 06/03/25 21:00 06/03/25 22:37 Atorvastatin 40 Mg Tablet PO 40 mg QPM JOSÉ LUIS Administration Carbidopa/Levodopa 1 tab 06/03/25 18:00 06/04/25 06:01 Carbidopa/Levodopa 25 Mg/100 Mg Tablet PO 1 tab TID JOSÉ LUIS Administration Ceftriaxone Sodium 1 gm 06/04/25 09:00 06/04/25 08:50 Ceftriaxone 1 Gm Vial IVP 1 gm DAILY JOSÉ LUIS Administration Citalopram Hydrobromide 20 mg 06/04/25 09:00 06/04/25 08:14 Citalopram Hydrobromide 20 Mg Tablet PO 20 mg DAILY JOSÉ LUIS Administration Hydrochlorothiazide 25 mg 06/04/25 09:00 06/04/25 08:14 Hydrochlorothiazide 25 Mg Tablet PO 25 mg DAILY JOSÉ LUIS Administration Hydromorphone HCl 0.5 mg 06/03/25 14:10 Hydromorphone 0.5 Mg/0.5 Ml Syringe IVP Q2H PRN Pain 8 to 10 Vancomycin HCl 1 gm/ Sodium 250 mls @ 167 mls/hr 06/04/25 06:00 06/04/25 05:59 Chloride IV 167 mls/hr Q12H JOSÉ LUIS Administration Insulin Human Lispro 1 - 5 unit 06/03/25 17:00 06/04/25 08:13 Insulin Lispro 300 Unit/3 Ml Pen SUBQ Not Given 0800,1200,1700,2100 [facility] Protocol Multivitamins 1 tab 06/04/25 08:00 06/04/25 08:14 Multivitamin Tablet PO 1 tab DAILYWM JOSÉ LUIS Administration Ondansetron HCl 4 mg 06/03/25 10:54 Ondansetron 4 Mg/2 Ml Vial IVP Q6HR PRN Nausea / Vomiting Oxycodone HCl 5 mg 06/03/25 14:10 06/04/25 06:01 Oxycodone 5 Mg Tablet PO 5 mg Q4HR PRN Administration Pain 5 to 7 Polyethylene Glycol 17 gm 06/04/25 09:00 06/04/25 08:14 Polyethylene Glycol 3350 17 Gm Packet PO 17 gm DAILY JOSÉ LUIS Administration Propranolol HCl 40 mg 06/03/25 22:00 06/04/25 06:01 Propranolol 40 Mg Tablet PO 40 mg TID JOSÉ LUIS Administration Sodium Chloride 10 ml 06/03/25 14:10 Sodium Chloride Flush 0.9% 10 Ml Syringe IVP PRN PRN NEEDED PER PROVIDER ORDERS Sodium Chloride 10 ml 06/03/25 17:00 06/04/25 08:15 Sodium Chloride Flush 0.9% 10 Ml Syringe IVP 10 ml 0100,0900,1700 JOSÉ LUIS Administration Objective Vital Signs/Intake & Output Vital Signs: Vital Signs x48h Temp Pulse Resp BP Pulse Ox O2 Flow Rate 06/04/25 06:03 154/81 H 06/04/25 05:00 36.7 C 63 16 161/84 H 99 1 Intake & Output: Intake & Output 06/01/25 06/02/25 06/03/25 06/04/25 23:59 23:59 23:59 23:59 Intake Total 1999 360 / 360 Balance 1999 360 / 360 Weight (kg) 102.5 kg Objective General Appearance: positive No acute distress and Alert Eyes Bilateral: positive Normal inspection ENT: positive ENT inspection nml Neck: positive Nml inspection Respiratory: positive No respiratory distress and Breath sounds nml Cardiovascular: positive Regular rate & rhythm Abdomen: positive No distention Skin: positive Color nml Extremities: positive Other (prevena vac in place, ecchymosis and swelling in the right shoulder, down onto right upper arm. ) Neurologic/Psychiatric: positive Oriented x3 Lab Results 06/04/25 05:45 06/04/25 05:45 Other Labs: Lab Results x24hrs 06/04/25 06/04/25 06/03/25 Range/Units 07:45 05:45 20:30 WBC 8.1 (4.8-10.8) x10^3/uL RBC 3.63 L (4.70-6.10) 10^6/uL Hgb 11.4 L (14.0-18.0) g/dL Hct 34.0 L (42.0-52.0) % MCV 93.7 (80.0-94.0) fL MCH 31.4 H (27.0-31.0) pg MCHC 33.5 (32.0-36.0) g/dL RDW 13.8 (12.0-15.0) % Plt Count 191 (130-450) 10^3/uL MPV 11.1 (7.4-11.4) fL Neut # (Auto) 5.7 (1.5-6.6) 10^3/uL Lymph # (Auto) 1.4 L (1.5-3.5) 10^3/uL [place] # (Auto) 0.8 (0.0-1.0) 10^3/uL Eos # (Auto) 0.2 (0.0-0.7) 10^3/uL Baso # (Auto) 0.1 (0.0-0.1) 10^3/uL Absolute Nucleated RBC 0.00 x10^3/uL Nucleated RBC % 0.0 /100WBC Sodium 139 (135-145) mmol/L Potassium 3.7 (3.5-4.5) mmol/L Chloride 105 (101-111) mmol/L Carbon Dioxide 28 (21-32) mmol/L Anion Gap 6.0 (6-13) BUN 17 (6-20) mg/dL Creatinine 0.9 (0.6-1.3) mg/dL Estimated GFR (MDRD) 82 L (>89) Glucose 135 H (74-104) mg/dL POC Whole Bld Glucose 132 145 (70-100) mg/dL Calcium 8.9 (8.5-10.3) mg/dL Last Dose Date UNK Last Dose Time UNK Random Vancomycin 7.0 ug/mL 06/03/25 06/03/25 06/03/25 Range/Units 17:47 16:30 11:15 WBC (4.8-10.8) x10^3/uL RBC (4.70-6.10) 10^6/uL Hgb (14.0-18.0) g/dL Hct (42.0-52.0) % MCV (80.0-94.0) fL MCH (27.0-31.0) pg MCHC (32.0-36.0) g/dL RDW (12.0-15.0) % Plt Count (130-450) 10^3/uL MPV (7.4-11.4) fL Neut # (Auto) (1.5-6.6) 10^3/uL Lymph # (Auto) (1.5-3.5) 10^3/uL [place] # (Auto) (0.0-1.0) 10^3/uL Eos # (Auto) (0.0-0.7) 10^3/uL Baso # (Auto) (0.0-0.1) 10^3/uL Absolute Nucleated RBC x10^3/uL Nucleated RBC % /100WBC Sodium 139 (135-145) mmol/L Potassium 3.6 (3.5-4.5) mmol/L Chloride 104 (101-111) mmol/L Carbon Dioxide 28 (21-32) mmol/L Anion Gap 7.0 (6-13) BUN 21 H (6-20) mg/dL Creatinine 0.9 (0.6-1.3) mg/dL Estimated GFR (MDRD) 82 L (>89) Glucose 150 H (74-104) mg/dL POC Whole Bld Glucose 95 157 (70-100) mg/dL Calcium 9.2 (8.5-10.3) mg/dL Last Dose Date Last Dose Time Random Vancomycin ug/mL Assessment/Plan Problem List (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 04/03/2025: Right reverse total shoulder arthroplasty 05/20/2025: Revision of right shoulder arthroplasty 06/03/2025: Right shoulder irrigation and debridement the patient is on empiric vancomycin and Rocephin. Intraoperative cultures are pending. Gram stain shows many WBCs and no organisms. Should the patient's intraoperative cultures to be sterile we will plan for empiric coverage with daptomycin and Rocephin. Should the cultures grow something we will tailor antibiotic therapy to the organism. For the current time, patient will be maintained on vancomycin, dosing per pharmacy as well as Rocephin 2 g IV daily. Prevena wound VAC is in place on the incision. There is no erythema. There is expected swelling and ecchymosis.No leukocytosis seen on labs. Discussed with Dr. Martinez of orthopedics. He will manage outpatient antibiotics. Discussed with case management today and we will make arrangements for antibiotics. Still awaiting cultures, but moving forward with dc planning. Left sided PICC is functional. Pain is not well-controlled. At home he does take Tylenol and ibuprofen for pain. As well as oxycodone. We will start with some multimodal pain control. I have scheduled Tylenol 1 g 3 times daily, I have also scheduled ketorolac 15 mg IV every 6 hours x 20 doses. I am also adding gabapentin 100 mg 3 times daily. in addition to this, PRN oxycodone. I am not sure that topical lidocaine would be helpful here, due to majority of the area being covered by prevena dressing Low-dose aspirin for DVT prophylaxis. He will be placed on Lovenox while here in the hospital and I will recommend resumption of aspirin therapy on discharge home. (2) Type 2 diabetes mellitus with peripheral neuropathy: Impression: History of well-controlled diabetes mellitus. On glipizide 2.5 mg a day as an outpatient. Had 1 value of 8% as a POC test. This is probably spurious. It did however unfortunately delay the patient's total shoulder arthroplasty for about a month. Last hemoglobin A1c 6.6% in February of this year. Repeated today, shows reasonable control. Blood sugar control here has been adequate with low dose SSI. 08/27/24 03/02/25 06/03/25 08:18 07:27 20:30 POC Whole Bld Glucose 145 Hemoglobin A1c % 6.3 H 6.6 H 06/04/25 06/04/25 06/04/25 05:45 07:45 11:37 POC Whole Bld Glucose 132 130 Hemoglobin A1c % 5.9 Holding glipizide for this admission. (3) Parkinsonian features: Impression: Chronic tremor. He is currently on a Sinemet trial for 3 mo through his neurologist, Dr Karen Cesar in [place]. I have restarted home propranolol as well as home Sinemet. Dr Cesar wanted some labs drawn. I have ordered these for the patient. These will be drawn in the ship [place] ESR and CRP are on the panel. I have ordered them, but I expect them to be elevated, so will need eventual repeat on these. Ordered : B12, methylmalonic acid, TSH, ESR, CRP, Celiac panel, B6, Vit E level. Checked his tremor today. yesterday, immediately post op, I noticed it at rest, today not present at rest, but it is most def present when he attempts to write his name. . (4) Essential hypertension, benign: Impression: I have resumed home meds Hydrochlorothiazide, 25 mg daily, propranolol LA 120 mg daily. (5) Hyperlipidemia: Impression: Have resumed home statin.Lipitor 40 mg daily. This patient's diagnosis and treatment plan was discussed this AM with attending physician as a part of multi disciplinary rounding meeting I have spent 52 minutes in the care of this patient today. This includes time [id number], review and ordering of diagnostic imaging and laboratory studies and consultation with other providers. Monitoring the patient's signs symptoms, evaluation of medication effectiveness and patient's response to treatment.
[2025-06-04] MEDS: KETOROLAC 15 MG/ML VIAL IVP SCH (13:23)
[2025-06-04 13:24] LABS: ESTIMATED AVERAGE GLUCOSE 123 mg/dL (70-100); HEMOGLOBIN A1c% 5.9 % (4.27-6.07)
[2025-06-04] MEDS: ACETAMINOPHEN 500 MG TABLET PO SCH (14:40)
[2025-06-04] MEDS: GABAPENTIN 100 MG CAPSULE PO SCH (14:41)
[2025-06-04] MEDS: VANCOMYCIN INJ 1 GM, VANCOMYCIN INJ 500 MG in SODIUM CHLORIDE 0.9% 500 ML IV SCH (17:20)
[2025-06-05 06:34] LABS: HCT - HEMATOCRIT 35.1 % (42.0-52.0); HGB - HEMOGLOBIN 11.2 g/dL (14.0-18.0); MEAN PLATELET VOLUME 10.3 fL (7.4-11.4); NRBC ABSOLUTE COUNT (AUTO) 0.00 x10^3/uL; NUCLEATED RED BLOOD CELLS AUTO 0.0 /100WBC; PLT - PLATELET COUNT 207 10^3/uL (130-450); RED CELL DISTRIBUTION WIDTH 13.8 % (12.0-15.0)
[2025-06-05 06:54] LABS: BUN - BLOOD UREA NITROGEN 18.0 mg/dL (6-20); CARBON DIOXIDE - CO2 30.0 mmol/L (21-32); CREATININE 0.9 mg/dL (0.6-1.3); CRP - C-REACTIVE PROTEIN 2.5 mg/dL (<0.5); GFR - MDRD 82.0 (>89)
--- NOTE | 2025-06-05 08:01 | POST OP PROGRESS NOTE ---
Subjective General Admit Date: 06/03/25 Procedure Performed: right shoulder irrigation and debridement, DOS 06-03-25 Other Other Information/Narrative: no events overnight. he reports improvement in right shoulder pain and states he feels able to move it again. hes very happy with the pain relief. Stayed the night for continued IV antibiotics while awaiting approval for transition to outpatient IV abx. Ortho Surgical Progress Note Problem List Problem List: right reverse shoulder prosthesis joint infection, s/p surgical I&D on 06-03, doing well on IV antibiotics and clinically stable with improved pain, no signs of worsenning infection. continue prevena wound vac contiue IV antibiotics, with plan to transition to outpatient IV via PICC line which is already been placed, disposition per medical team, recommend orthopedic outpatient follow up next week Exam Exam Vital Signs: Vital Signs x48h Temp Pulse Resp BP Pulse Ox 06/05/25 00:03 36.6 C 52 L 18 143/74 H 97 R shoulder prevena incision wound vac clean dry intact with good suction maintained. no surrounding erythema. NVI distally.
[2025-06-05] MEDS: cefTRIAXone 2 GM in SODIUM CHLORIDE 0.9% MINIBAG 100 ML IV SCH (08:52)
--- NOTE | 2025-06-05 10:28 | PROVIDER PROGRESS NOTE ---
Subjective Prog Note Date Prog Note Date: 06/05/25 Subjective Subjective: I asked him how is his pain control, and he replies "wonderful". meds started yesterday seem to be working. I spoke with his later on in the day in the [place], and she is relieved about his degree of pain relief. Current Medications Current Medications Current Medications: Current Medications Generic Name Dose Route Start Last Admin Trade Name Freq PRN Reason Stop Dose Admin Acetaminophen 650 mg 06/03/25 14:10 Acetaminophen 325 Mg Tablet PO Q4HR PRN Pain 1 to 4, or Fever Acetaminophen 1,000 mg 06/04/25 14:00 06/05/25 06:18 Acetaminophen 500 Mg Tablet PO 1,000 mg TID JOSÉ LUIS Administration Atorvastatin Calcium 40 mg 06/03/25 21:00 06/04/25 21:22 Atorvastatin 40 Mg Tablet PO 40 mg QPM JOSÉ LUIS Administration Carbidopa/Levodopa 1 tab 06/03/25 18:00 06/05/25 06:15 Carbidopa/Levodopa 25 Mg/100 Mg Tablet PO 1 tab TID JOSÉ LUIS Administration Citalopram Hydrobromide 20 mg 06/04/25 09:00 06/05/25 07:59 Citalopram Hydrobromide 20 Mg Tablet PO 20 mg DAILY JOSÉ LUIS Administration Gabapentin 100 mg 06/04/25 14:00 06/05/25 06:15 Gabapentin 100 Mg Capsule PO 100 mg TID JOSÉ LUIS Administration Hydrochlorothiazide 25 mg 06/04/25 09:00 06/05/25 07:59 Hydrochlorothiazide 25 Mg Tablet PO 25 mg DAILY JOSÉ LUIS Administration Hydromorphone HCl 0.5 mg 06/03/25 14:10 Hydromorphone 0.5 Mg/0.5 Ml Syringe IVP Q2H PRN Pain 8 to 10 Ceftriaxone Sodium 2 gm/ 100 mls @ 200 mls/hr 06/05/25 09:00 06/05/25 08:52 Sodium Chloride IV 200 mls/hr DAILY JOSÉ LUIS Administration Vancomycin HCl 1 gm/ 500 mls @ 250 mls/hr 06/04/25 18:00 06/05/25 08:30 Vancomycin HCl 500 mg/ Sodium IV Infused Chloride Q12H JOSÉ LUIS Infusion Insulin Human Lispro 1 - 5 unit 06/03/25 17:00 06/05/25 07:58 Insulin Lispro 300 Unit/3 Ml Pen SUBQ Not Given 0800,1200,1700,2100 [facility] Protocol Ketorolac Tromethamine 15 mg 06/04/25 13:00 06/05/25 06:21 Ketorolac 15 Mg/Ml Vial IVP 06/09/25 06:01 15 mg Q6HR JOSÉ LUIS Administration Multivitamins 1 tab 06/04/25 08:00 06/05/25 07:59 Multivitamin Tablet PO 1 tab DAILYWM JOSÉ LUIS Administration Ondansetron HCl 4 mg 06/03/25 10:54 Ondansetron 4 Mg/2 Ml Vial IVP Q6HR PRN Nausea / Vomiting Oxycodone HCl 5 mg 06/03/25 14:10 06/04/25 06:01 Oxycodone 5 Mg Tablet PO 5 mg Q4HR PRN Administration Pain 5 to 7 Polyethylene Glycol 17 gm 06/04/25 09:00 06/05/25 07:59 Polyethylene Glycol 3350 17 Gm Packet PO 17 gm DAILY JOSÉ LUIS Administration Propranolol HCl 40 mg 06/03/25 22:00 06/05/25 06:15 Propranolol 40 Mg Tablet PO 40 mg TID JOSÉ LUIS Administration Sodium Chloride 10 ml 06/03/25 14:10 Sodium Chloride Flush 0.9% 10 Ml Syringe IVP PRN PRN NEEDED PER PROVIDER ORDERS Sodium Chloride 10 ml 06/03/25 17:00 06/05/25 07:59 Sodium Chloride Flush 0.9% 10 Ml Syringe IVP 10 ml 0100,0900,1700 JOSÉ LUIS Administration Objective Vital Signs/Intake & Output Reviewed Vital Signs: Yes Vital Signs: Vital Signs x48h Temp Pulse Resp BP Pulse Ox 06/05/25 08:00 36.6 C 54 L 16 152/78 H 96 Intake & Output: Intake & Output 06/02/25 06/03/25 06/04/25 06/05/25 23:59 23:59 23:59 23:59 Intake Total 1999 1480 / 1480 Balance 1999 1480 / 1480 Weight (kg) 102.5 kg Objective General Appearance: positive No acute distress and Alert Eyes Bilateral: positive Normal inspection ENT: positive ENT inspection nml Neck: positive Nml inspection Respiratory: positive No respiratory distress and Breath sounds nml Cardiovascular: positive Regular rate & rhythm Abdomen: positive No distention Skin: positive Color nml Extremities: positive Other (prevena vac in place, ecchymosis and swelling in the right shoulder, down onto right upper arm. ) Neurologic/Psychiatric: positive Oriented x3 Lab Results 06/05/25 06:25 06/05/25 06:25 Other Labs: Lab Results x24hrs 06/05/25 06/05/25 06/04/25 Range/Units 07:50 06:25 20:34 WBC 6.8 (4.8-10.8) x10^3/uL RBC 3.73 L (4.70-6.10) 10^6/uL Hgb 11.2 L (14.0-18.0) g/dL Hct 35.1 L (42.0-52.0) % MCV 94.1 H (80.0-94.0) fL MCH 30.0 (27.0-31.0) pg MCHC 31.9 L (32.0-36.0) g/dL RDW 13.8 (12.0-15.0) % Plt Count 207 (130-450) 10^3/uL MPV 10.3 (7.4-11.4) fL Neut # (Auto) 3.8 (1.5-6.6) 10^3/uL Lymph # (Auto) 1.9 (1.5-3.5) 10^3/uL [place] # (Auto) 0.6 (0.0-1.0) 10^3/uL Eos # (Auto) 0.4 (0.0-0.7) 10^3/uL Baso # (Auto) 0.1 (0.0-0.1) 10^3/uL Absolute Nucleated RBC 0.00 x10^3/uL Nucleated RBC % 0.0 /100WBC ESR 34 H (0-20) mm/Hr Sodium 138 (135-145) mmol/L Potassium 3.6 (3.5-4.5) mmol/L Chloride 102 (101-111) mmol/L Carbon Dioxide 30 (21-32) mmol/L Anion Gap 6.0 (6-13) BUN 18 (6-20) mg/dL Creatinine 0.9 (0.6-1.3) mg/dL Estimated GFR (MDRD) 82 L (>89) Glucose 129 H (74-104) mg/dL POC Whole Bld Glucose 138 131 (70-100) mg/dL Estimat Average Glucose (70-100) mg/dL Hemoglobin A1c % (4.27-6.07) % Calcium 9.4 (8.5-10.3) mg/dL C-Reactive Protein 2.5 H (<0.5) mg/dL Vitamin B12 353 (180-914) pg/mL TSH 2.33 (0.34-5.60) uIU/mL 06/04/25 06/04/25 06/04/25 Range/Units 16:34 11:37 05:45 WBC (4.8-10.8) x10^3/uL RBC (4.70-6.10) 10^6/uL Hgb (14.0-18.0) g/dL Hct (42.0-52.0) % MCV (80.0-94.0) fL MCH (27.0-31.0) pg MCHC (32.0-36.0) g/dL RDW (12.0-15.0) % Plt Count (130-450) 10^3/uL MPV (7.4-11.4) fL Neut # (Auto) (1.5-6.6) 10^3/uL Lymph # (Auto) (1.5-3.5) 10^3/uL [place] # (Auto) (0.0-1.0) 10^3/uL Eos # (Auto) (0.0-0.7) 10^3/uL Baso # (Auto) (0.0-0.1) 10^3/uL Absolute Nucleated RBC x10^3/uL Nucleated RBC % /100WBC ESR (0-20) mm/Hr Sodium (135-145) mmol/L Potassium (3.5-4.5) mmol/L Chloride (101-111) mmol/L Carbon Dioxide (21-32) mmol/L Anion Gap (6-13) BUN (6-20) mg/dL Creatinine (0.6-1.3) mg/dL Estimated GFR (MDRD) (>89) Glucose (74-104) mg/dL POC Whole Bld Glucose 119 130 (70-100) mg/dL Estimat Average Glucose 123 H (70-100) mg/dL Hemoglobin A1c % 5.9 (4.27-6.07) % Calcium (8.5-10.3) mg/dL C-Reactive Protein (<0.5) mg/dL Vitamin B12 (180-914) pg/mL TSH (0.34-5.60) uIU/mL ABX Reporting Has patient been on IV antibiotics over the past 48 hours?: Yes Assessment/Plan Problem List (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 04/03/2025: Right reverse total shoulder arthroplasty 05/20/2025: Revision of right shoulder arthroplasty 06/03/2025: Right shoulder irrigation and debridement the patient is on empiric vancomycin and Rocephin. Intraoperative cultures are pending. Gram stain shows many WBCs and no organisms. Should the patient's intraoperative cultures to be sterile we will plan for empiric coverage with daptomycin and Rocephin. Should the cultures grow something we will tailor antibiotic therapy to the organism. For the current time, patient will be maintained on vancomycin, dosing per pharmacy as well as Rocephin 2 g IV daily. Prevena wound VAC is in place on the incision. There is no erythema. There is expected swelling and ecchymosis.No leukocytosis seen on labs. Discussed with Dr. Martinez of orthopedics. He will manage outpatient antibiotics. Discussed with case management today and with logistics of authorization and a holiday weekend, patient can depart here on06/08 and do first OP infusion on 06/09 for abx, . Still awaiting cultures, but moving forward with dc planning. Left sided PICC is functional. Pain is well-controlled. At home he does take Tylenol and ibuprofen for pain. As well as oxycodone. I multimodal pain control. I have scheduled Tylenol 1 g 3 times daily, I have also scheduled ketorolac 15 mg IV every 6 hours x 20 doses. I am also adding gabapentin 100 mg 3 times daily. in addition to this, PRN oxycodone. I am not sure that topical lidocaine would be helpful here, due to majority of the area being covered by prevena dressing Low-dose aspirin for DVT prophylaxis. He will be placed on Lovenox while here in the hospital and I will recommend resumption of aspirin therapy on discharge home. (2) Type 2 diabetes mellitus with peripheral neuropathy: Impression: History of well-controlled diabetes mellitus. On glipizide 2.5 mg a day as an outpatient. Had 1 value of 8% as a POC test. This is probably spurious. It did however unfortunately delay the patient's total shoulder arthroplasty for about a month. Last hemoglobin A1c 6.6% in February of this year. Repeated, shows reasonable control 5.9%. Blood sugar control here has been adequate with low dose SSI. Laboratory Tests 06/04/25 06/05/25 06/05/25 20:34 07:50 11:22 POC Whole Bld Glucose 131 138 142 06/05/25 16:36 POC Whole Bld Glucose 89 Holding glipizide for this admission. (3) Parkinsonian features: Impression: Chronic tremor. He is currently on a Sinemet trial for 3 mo through his neurologist, Dr Karen Cesar in [place]. I have restarted home propranolol as well as home Sinemet. Dr Cesar wanted some labs drawn. I have ordered these for the patient. These will [facility] the [facility] ESR and CRP are on the panel. CRP is 2.5 and ESR is also elevated. these will need repeat when patient is not acutely ill. TSH WNL. majority are sendout labs, discussed available results with patient. Ordered : B12, methylmalonic acid, TSH, ESR, CRP, Celiac panel, B6, Vit E level. . (4) Essential hypertension, benign: Impression: I have resumed home meds Hydrochlorothiazide, 25 mg daily, propranolol LA 120 mg daily. (5) Hyperlipidemia: Impression: Have resumed home statin.Lipitor 40 mg daily. This patient's diagnosis and treatment plan was discussed this AM with attending physician as a part of multi disciplinary rounding meeting I have spent 45 minutes in the care of this patient today. This includes time [id number], review and ordering of diagnostic imaging and laboratory studies . Monitoring the patient's signs symptoms, evaluation of medication effectiveness and patient's response to treatment.
[2025-06-06 06:07] LABS: HCT - HEMATOCRIT 31.6 % (42.0-52.0); HGB - HEMOGLOBIN 10.5 g/dL (14.0-18.0); MEAN PLATELET VOLUME 10.6 fL (7.4-11.4); NRBC ABSOLUTE COUNT (AUTO) 0.00 x10^3/uL; NUCLEATED RED BLOOD CELLS AUTO 0.0 /100WBC; PLT - PLATELET COUNT 199 10^3/uL (130-450); RED CELL DISTRIBUTION WIDTH 13.6 % (12.0-15.0)
[2025-06-06 06:19] LABS: BUN - BLOOD UREA NITROGEN 18.0 mg/dL (6-20); CARBON DIOXIDE - CO2 28.0 mmol/L (21-32); CREATININE 0.8 mg/dL (0.6-1.3); GFR - MDRD 94.0 (>89)
[2025-06-06] MEDS: SODIUM CHLORIDE FLUSH 0.9% 10 ML SYRINGE IVP PRN (11:50)
--- NOTE | 2025-06-06 17:29 | PROVIDER PROGRESS NOTE ---
Subjective Prog Note Date Prog Note Date: 06/06/25 Subjective Subjective: he and his are looking over the calendar, wondering when they will be going daily for antibiotics and arranging appointments. He is still doing well and states that his pain control is great. most recent oxycodone given >48 h ago. Current Medications Current Medications Current Medications: Current Medications Generic Name Dose Route Start Last Admin Trade Name Freq PRN Reason Stop Dose Admin Acetaminophen 650 mg 06/03/25 14:10 Acetaminophen 325 Mg Tablet PO Q4HR PRN Pain 1 to 4, or Fever Acetaminophen 1,000 mg 06/04/25 14:00 06/06/25 14:07 Acetaminophen 500 Mg Tablet PO 1,000 mg TID JOSÉ LUIS Administration Atorvastatin Calcium 40 mg 06/03/25 21:00 06/05/25 21:10 Atorvastatin 40 Mg Tablet PO 40 mg QPM JOSÉ LUIS Administration Carbidopa/Levodopa 1 tab 06/03/25 18:00 06/06/25 14:07 Carbidopa/Levodopa 25 Mg/100 Mg Tablet PO 1 tab TID JOSÉ LUIS Administration Citalopram Hydrobromide 20 mg 06/04/25 09:00 06/06/25 08:28 Citalopram Hydrobromide 20 Mg Tablet PO 20 mg DAILY JOSÉ LUIS Administration Gabapentin 100 mg 06/04/25 14:00 06/06/25 14:07 Gabapentin 100 Mg Capsule PO 100 mg TID JOSÉ LUIS Administration Hydrochlorothiazide 25 mg 06/04/25 09:00 06/06/25 08:29 Hydrochlorothiazide 25 Mg Tablet PO 25 mg DAILY JOSÉ LUIS Administration Hydromorphone HCl 0.5 mg 06/03/25 14:10 Hydromorphone 0.5 Mg/0.5 Ml Syringe IVP Q2H PRN Pain 8 to 10 Ceftriaxone Sodium 2 gm/ 100 mls @ 200 mls/hr 06/05/25 09:00 06/06/25 09:05 Sodium Chloride IV Infused DAILY JOSÉ LUIS Infusion Vancomycin HCl 1 gm/ 500 mls @ 250 mls/hr 06/04/25 18:00 06/06/25 08:00 Vancomycin HCl 500 mg/ Sodium IV Infused Chloride Q12H JOSÉ LUIS Infusion Insulin Human Lispro 1 - 5 unit 06/03/25 17:00 06/06/25 17:14 Insulin Lispro 300 Unit/3 Ml Pen SUBQ Not Given 0800,1200,1700,2100 [facility] Protocol Ketorolac Tromethamine 15 mg 06/04/25 13:00 06/06/25 11:50 Ketorolac 15 Mg/Ml Vial IVP 06/09/25 06:01 15 mg Q6HR JOSÉ LUIS Administration Multivitamins 1 tab 06/04/25 08:00 06/06/25 08:28 Multivitamin Tablet PO 1 tab DAILYWM JOSÉ LUIS Administration Ondansetron HCl 4 mg 06/03/25 10:54 Ondansetron 4 Mg/2 Ml Vial IVP Q6HR PRN Nausea / Vomiting Oxycodone HCl 5 mg 06/03/25 14:10 06/04/25 06:01 Oxycodone 5 Mg Tablet PO 5 mg Q4HR PRN Administration Pain 5 to 7 Polyethylene Glycol 17 gm 06/04/25 09:00 06/06/25 08:37 Polyethylene Glycol 3350 17 Gm Packet PO Not Given DAILY [facility] Propranolol HCl 40 mg 06/03/25 22:00 06/06/25 14:08 Propranolol 40 Mg Tablet PO 40 mg TID JOSÉ LUIS Administration Sodium Chloride 10 ml 06/03/25 14:10 06/06/25 11:50 Sodium Chloride Flush 0.9% 10 Ml Syringe IVP 10 ml PRN PRN Administration NEEDED PER PROVIDER ORDERS Sodium Chloride 10 ml 06/03/25 17:00 06/06/25 17:14 Sodium Chloride Flush 0.9% 10 Ml Syringe IVP 10 ml 0100,0900,1700 [facility] Administration Objective Vital Signs/Intake & Output Reviewed Vital Signs: Yes Vital Signs: Vital Signs x48h Temp Pulse Resp BP Pulse Ox 06/06/25 16:12 36.6 C 56 L 16 159/84 H 95 Intake & Output: Intake & Output 06/03/25 06/04/25 06/05/25 06/06/25 23:59 23:59 23:59 23:59 Intake Total 1999 3180 / 3180 1580 / 1580 Balance 1999 3180 / 3180 1580 / 1580 Weight (kg) 102.5 kg Objective General Appearance: positive No acute distress and Alert Eyes Bilateral: positive Normal inspection ENT: positive ENT inspection nml Neck: positive Nml inspection Respiratory: positive No respiratory distress and Breath sounds nml Cardiovascular: positive Regular rate & rhythm Abdomen: positive No distention Skin: positive Color nml Extremities: positive Other (prevena vac in place, ecchymosis and swelling in the right shoulder, down onto right upper arm. ) Neurologic/Psychiatric: positive Oriented x3 Lab Results 06/06/25 05:40 06/06/25 05:40 Other Labs: Lab Results x24hrs 06/06/25 06/06/25 06/06/25 Range/Units 16:36 11:36 07:35 WBC (4.8-10.8) x10^3/uL RBC (4.70-6.10) 10^6/uL Hgb (14.0-18.0) g/dL Hct (42.0-52.0) % MCV (80.0-94.0) fL MCH (27.0-31.0) pg MCHC (32.0-36.0) g/dL RDW (12.0-15.0) % Plt Count (130-450) 10^3/uL MPV (7.4-11.4) fL Neut # (Auto) (1.5-6.6) 10^3/uL Lymph # (Auto) (1.5-3.5) 10^3/uL [place] # (Auto) (0.0-1.0) 10^3/uL Eos # (Auto) (0.0-0.7) 10^3/uL Baso # (Auto) (0.0-0.1) 10^3/uL Absolute Nucleated RBC x10^3/uL Nucleated RBC % /100WBC Sodium (135-145) mmol/L Potassium (3.5-4.5) mmol/L Chloride (101-111) mmol/L Carbon Dioxide (21-32) mmol/L Anion Gap (6-13) BUN (6-20) mg/dL Creatinine (0.6-1.3) mg/dL Estimated GFR (MDRD) (>89) Glucose (74-104) mg/dL POC Whole Bld Glucose 104 129 115 (70-100) mg/dL Calcium (8.5-10.3) mg/dL 06/06/25 06/05/25 Range/Units 05:40 20:42 WBC 6.5 (4.8-10.8) x10^3/uL RBC 3.42 L (4.70-6.10) 10^6/uL Hgb 10.5 L (14.0-18.0) g/dL Hct 31.6 L (42.0-52.0) % MCV 92.4 (80.0-94.0) fL MCH 30.7 (27.0-31.0) pg MCHC 33.2 (32.0-36.0) g/dL RDW 13.6 (12.0-15.0) % Plt Count 199 (130-450) 10^3/uL MPV 10.6 (7.4-11.4) fL Neut # (Auto) 4.1 (1.5-6.6) 10^3/uL Lymph # (Auto) 1.4 L (1.5-3.5) 10^3/uL [place] # (Auto) 0.5 (0.0-1.0) 10^3/uL Eos # (Auto) 0.4 (0.0-0.7) 10^3/uL Baso # (Auto) 0.1 (0.0-0.1) 10^3/uL Absolute Nucleated RBC 0.00 x10^3/uL Nucleated RBC % 0.0 /100WBC Sodium 136 (135-145) mmol/L Potassium 3.6 (3.5-4.5) mmol/L Chloride 103 (101-111) mmol/L Carbon Dioxide 28 (21-32) mmol/L Anion Gap 5.0 L (6-13) BUN 18 (6-20) mg/dL Creatinine 0.8 (0.6-1.3) mg/dL Estimated GFR (MDRD) 94 (>89) Glucose 117 H (74-104) mg/dL POC Whole Bld Glucose 111 (70-100) mg/dL Calcium 9.3 (8.5-10.3) mg/dL ABX Reporting Has patient been on IV antibiotics over the past 48 hours?: Yes Assessment/Plan Problem List (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 04/03/2025: Right reverse total shoulder arthroplasty 05/20/2025: Revision of right shoulder arthroplasty 06/03/2025: Right shoulder irrigation and debridement the patient is on empiric vancomycin and Rocephin. Intraoperative cultures are pending. Gram stain shows many WBCs and no organisms. Final cultures are sterile, as we suspected. He will stay on Vancomycin per pharmacy and rocephin while here, then change out to Daptomycin and rocephin as an outpatient. Total 42 days of treatment. Prevena wound VAC is in place on the incision. There is no erythema. There is expected swelling and ecchymosis.No leukocytosis seen on labs. Dr. Martinez of orthopedics will manage outpatient antibiotics. Discussed with case management today, MAC gains auth for Abx, and this did not come through on Sunday, patient can depart here on06/08 (sunday) and do first OP infusion on 06/09 for abx, as I anticipate that auth will be completed on Sunday. Left sided PICC is functional. Pain is well-controlled. At home he does take Tylenol and ibuprofen for pain. As well as oxycodone. I started multimodal pain control. I have scheduled Tylenol 1 g 3 times daily, I have also scheduled ketorolac 15 mg IV every 6 hours x 20 doses. I am also adding gabapentin 100 mg 3 times daily. in addition to this, PRN oxycodone- it has been 48 hours since his last dose of oxycodone I am not sure that topical lidocaine would be helpful here, due to majority of the area being covered by prevena dressing I anticipate that he will be seen by ortho for wound check and staple removal sometime around 06/17 Low-dose aspirin for DVT prophylaxis. He will be placed on Lovenox while here in the hospital and I will recommend resumption of aspirin therapy on discharge home. (2) Type 2 diabetes mellitus with peripheral neuropathy: Impression: History of well-controlled diabetes mellitus. On glipizide 2.5 mg a day as an outpatient. Had 1 value of 8% as a POC test. This is probably spurious. It did however unfortunately delay the patient's total shoulder arthroplasty for about a month. Last hemoglobin A1c 6.6% in February of this year. Repeated, shows reasonable control 5.9%. Blood sugar control here has been adequate with low dose SSI. Laboratory Tests 06/05/25 06/05/25 06/06/25 16:36 20:42 07:35 POC Whole Bld Glucose 89 111 115 06/06/25 06/06/25 11:36 16:36 POC Whole Bld Glucose 129 104 Holding glipizide for this admission. (3) Parkinsonian features: Impression: Chronic tremor. He is currently on a Sinemet trial for 3 mo through his neurologist, Dr Karen Cesar in [place]. I have restarted home propranolol as well as home Sinemet. Dr Cesar wanted some labs drawn. I have ordered these for the patient. . CRP is 2.5 and ESR is also elevated. these will need repeat when patient is not acutely ill. TSH WNL. majority are sendout labs, discussed available results with patient. Ordered : B12, methylmalonic acid, TSH, ESR, CRP, Celiac panel, B6, Vit E level. . (4) Essential hypertension, benign: Impression: I have resumed home meds Hydrochlorothiazide, 25 mg daily, propranolol LA 120 mg daily. Selected Entries 06/06/25 00:06 06/06/25 07:35 06/06/25 16:12 Pulse Rate [Radial] 53 L 56 L 56 L Blood Pressure [Left Radial artery] 152/75 H 153/81 H 159/84 H (5) Hyperlipidemia: Impression: Have resumed home statin.Lipitor 40 mg daily. This patient's diagnosis and treatment plan was discussed this AM with attending physician as a part of multi disciplinary rounding meeting I have spent 28 minutes in the care of this patient today. This includes time [id number], review of laboratory studies . Monitoring the patient's signs symptoms, evaluation of medication effectiveness and patient's response to treatment.
[2025-06-07 06:22] LABS: HCT - HEMATOCRIT 31.2 % (42.0-52.0); HGB - HEMOGLOBIN 10.1 g/dL (14.0-18.0); MEAN PLATELET VOLUME 10.6 fL (7.4-11.4); NRBC ABSOLUTE COUNT (AUTO) 0.00 x10^3/uL; NUCLEATED RED BLOOD CELLS AUTO 0.0 /100WBC; PLT - PLATELET COUNT 210 10^3/uL (130-450); RED CELL DISTRIBUTION WIDTH 13.5 % (12.0-15.0)
[2025-06-07 06:40] LABS: BUN - BLOOD UREA NITROGEN 15.0 mg/dL (6-20); CARBON DIOXIDE - CO2 28.0 mmol/L (21-32); CREATININE 0.8 mg/dL (0.6-1.3); GFR - MDRD 94.0 (>89)
--- NOTE | 2025-06-07 17:26 | PROVIDER PROGRESS NOTE ---
Subjective Prog Note Date Prog Note Date: 06/07/25 Subjective Subjective: no complaints. continues to have good pain control has enjoyed football today Current Medications Current Medications Current Medications: Current Medications Generic Name Dose Route Start Last Admin Trade Name Freq PRN Reason Stop Dose Admin Acetaminophen 650 mg 06/03/25 14:10 Acetaminophen 325 Mg Tablet PO Q4HR PRN Pain 1 to 4, or Fever Acetaminophen 1,000 mg 06/04/25 14:00 06/07/25 14:49 Acetaminophen 500 Mg Tablet PO 1,000 mg TID JOSÉ LUIS Administration Atorvastatin Calcium 40 mg 06/03/25 21:00 06/06/25 21:12 Atorvastatin 40 Mg Tablet PO 40 mg QPM JOSÉ LUIS Administration Carbidopa/Levodopa 1 tab 06/03/25 18:00 06/07/25 14:49 Carbidopa/Levodopa 25 Mg/100 Mg Tablet PO 1 tab TID JOSÉ LUIS Administration Citalopram Hydrobromide 20 mg 06/04/25 09:00 06/07/25 08:00 Citalopram Hydrobromide 20 Mg Tablet PO 20 mg DAILY JOSÉ LUIS Administration Gabapentin 100 mg 06/04/25 14:00 06/07/25 14:49 Gabapentin 100 Mg Capsule PO 100 mg TID JOSÉ LUIS Administration Hydrochlorothiazide 25 mg 06/04/25 09:00 06/07/25 08:00 Hydrochlorothiazide 25 Mg Tablet PO 25 mg DAILY JOSÉ LUIS Administration Hydromorphone HCl 0.5 mg 06/03/25 14:10 Hydromorphone 0.5 Mg/0.5 Ml Syringe IVP Q2H PRN Pain 8 to 10 Ceftriaxone Sodium 2 gm/ 100 mls @ 200 mls/hr 06/05/25 09:00 06/07/25 09:33 Sodium Chloride IV Infused DAILY JOSÉ LUIS Infusion Vancomycin HCl 1 gm/ 500 mls @ 250 mls/hr 06/04/25 18:00 06/07/25 08:40 Vancomycin HCl 500 mg/ Sodium IV Infused Chloride Q12H JOSÉ LUIS Infusion Insulin Human Lispro 1 - 5 unit 06/03/25 17:00 06/07/25 11:32 Insulin Lispro 300 Unit/3 Ml Pen SUBQ Not Given 0800,1200,1700,2100 PENDING SALE TO [facility] Protocol Ketorolac Tromethamine 15 mg 06/04/25 13:00 06/07/25 12:19 Ketorolac 15 Mg/Ml Vial IVP 06/09/25 06:01 15 mg Q6HR JOSÉ LUIS Administration Multivitamins 1 tab 06/04/25 08:00 06/07/25 08:00 Multivitamin Tablet PO 1 tab DAILYWM JOSÉ LUIS Administration Ondansetron HCl 4 mg 06/03/25 10:54 Ondansetron 4 Mg/2 Ml Vial IVP Q6HR PRN Nausea / Vomiting Oxycodone HCl 5 mg 06/03/25 14:10 06/04/25 06:01 Oxycodone 5 Mg Tablet PO 5 mg Q4HR PRN Administration Pain 5 to 7 Polyethylene Glycol 17 gm 06/04/25 09:00 06/07/25 07:16 Polyethylene Glycol 3350 17 Gm Packet PO Not Given DAILY JOSÉ LUIS Propranolol HCl 40 mg 06/03/25 22:00 06/07/25 14:49 Propranolol 40 Mg Tablet PO 40 mg TID JOSÉ LUIS Administration Sodium Chloride 10 ml 06/03/25 14:10 06/06/25 11:50 Sodium Chloride Flush 0.9% 10 Ml Syringe IVP 10 ml PRN PRN Administration NEEDED PER PROVIDER ORDERS Sodium Chloride 10 ml 06/03/25 17:00 06/07/25 08:02 Sodium Chloride Flush 0.9% 10 Ml Syringe IVP 10 ml 0100,0900,1700 JOSÉ LUIS Administration Objective Vital Signs/Intake & Output Reviewed Vital Signs: Yes Vital Signs: Vital Signs x48h Temp Pulse Resp BP Pulse Ox 06/07/25 16:10 36.6 C 54 L 14 167/86 H 98 Intake & Output: Intake & Output 06/04/25 06/05/25 06/06/25 06/07/25 23:59 23:59 23:59 23:59 Intake Total 1949 3180 / 3180 2720 / 2720 1530 / 1530 Balance 1949 3180 / 3180 2720 / 2720 1530 / 1530 Objective General Appearance: positive No acute distress and Alert Eyes Bilateral: positive Normal inspection ENT: positive ENT inspection nml Neck: positive Nml inspection Respiratory: positive No respiratory distress and Breath sounds nml Cardiovascular: positive Regular rate & rhythm Abdomen: positive No distention Skin: positive Color nml Extremities: positive Other (prevena vac in place, ecchymosis and swelling in the right shoulder, down onto right upper arm. ) Neurologic/Psychiatric: positive Oriented x3 Lab Results 06/07/25 05:55 06/07/25 05:55 Other Labs: Lab Results x24hrs 06/07/25 06/07/25 06/07/25 Range/Units 16:34 11:26 07:45 WBC (4.8-10.8) x10^3/uL RBC (4.70-6.10) 10^6/uL Hgb (14.0-18.0) g/dL Hct (42.0-52.0) % MCV (80.0-94.0) fL MCH (27.0-31.0) pg MCHC (32.0-36.0) g/dL RDW (12.0-15.0) % Plt Count (130-450) 10^3/uL MPV (7.4-11.4) fL Neut # (Auto) (1.5-6.6) 10^3/uL Lymph # (Auto) (1.5-3.5) 10^3/uL Surry # (Auto) (0.0-1.0) 10^3/uL Eos # (Auto) (0.0-0.7) 10^3/uL Baso # (Auto) (0.0-0.1) 10^3/uL Absolute Nucleated RBC x10^3/uL Nucleated RBC % /100WBC Sodium (135-145) mmol/L Potassium (3.5-4.5) mmol/L Chloride (101-111) mmol/L Carbon Dioxide (21-32) mmol/L Anion Gap (6-13) BUN (6-20) mg/dL Creatinine (0.6-1.3) mg/dL Estimated GFR (MDRD) (>89) Glucose (74-104) mg/dL POC Whole Bld Glucose 90 115 117 (70-100) mg/dL Calcium (8.5-10.3) mg/dL 06/07/25 06/06/25 Range/Units 05:55 20:39 WBC 5.9 (4.8-10.8) x10^3/uL RBC 3.36 L (4.70-6.10) 10^6/uL Hgb 10.1 L (14.0-18.0) g/dL Hct 31.2 L (42.0-52.0) % MCV 92.9 (80.0-94.0) fL MCH 30.1 (27.0-31.0) pg MCHC 32.4 (32.0-36.0) g/dL RDW 13.5 (12.0-15.0) % Plt Count 210 (130-450) 10^3/uL MPV 10.6 (7.4-11.4) fL Neut # (Auto) 3.4 (1.5-6.6) 10^3/uL Lymph # (Auto) 1.6 (1.5-3.5) 10^3/uL Surry # (Auto) 0.5 (0.0-1.0) 10^3/uL Eos # (Auto) 0.4 (0.0-0.7) 10^3/uL Baso # (Auto) 0.1 (0.0-0.1) 10^3/uL Absolute Nucleated RBC 0.00 x10^3/uL Nucleated RBC % 0.0 /100WBC Sodium 138 (135-145) mmol/L Potassium 3.5 (3.5-4.5) mmol/L Chloride 104 (101-111) mmol/L Carbon Dioxide 28 (21-32) mmol/L Anion Gap 6.0 (6-13) BUN 15 (6-20) mg/dL Creatinine 0.8 (0.6-1.3) mg/dL Estimated GFR (MDRD) 94 (>89) Glucose 112 H (74-104) mg/dL POC Whole Bld Glucose 169 (70-100) mg/dL Calcium 9.1 (8.5-10.3) mg/dL ABX Reporting Has patient been on IV antibiotics over the past 48 hours?: Yes Assessment/Plan Problem List (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 04/03/2025: Right reverse total shoulder arthroplasty 05/20/2025: Revision of right shoulder arthroplasty 06/03/2025: Right shoulder irrigation and debridement the patient is on empiric vancomycin and Rocephin. Gram stain shows many WBCs and no organisms. Final cultures are sterile, as we suspected. He will stay on Vancomycin per pharmacy and rocephin while here, then change out to Daptomycin and rocephin as an outpatient. Total 42 days of treatment. Prevena wound VAC is in place on the incision. There is no erythema. There is expected swelling and ecchymosis.No leukocytosis seen on labs. Dr. Martinez of orthopedics will manage outpatient antibiotics. Discussed with case management today, [facility] gains auth for Abx, and this did not come through on Sunday, patient can depart here on06/08 (sunday) and do first OP infusion on 06/09 for abx, as I anticipate that auth will be completed on Sunday. Left sided PICC is functional. Pain is well-controlled. At home he does take Tylenol and ibuprofen for pain. As well as oxycodone. I started multimodal pain control. I have scheduled Tylenol 1 g 3 times daily, I have also scheduled ketorolac 15 mg IV every 6 hours x 20 doses. I am also adding gabapentin 100 mg 3 times daily. in addition to this, PRN oxycodone- it has been 48 hours since his last dose of oxycodone I am not sure that topical lidocaine would be helpful here, due to majority of the area being covered by prevena dressing I anticipate that he will be seen by ortho for wound check and staple removal sometime around 06/17 Low-dose aspirin for DVT prophylaxis. He will be placed on Lovenox while here in the hospital and I will recommend resumption of aspirin therapy on discharge home. (2) Type 2 diabetes mellitus with peripheral neuropathy: Impression: History of well-controlled diabetes mellitus. On glipizide 2.5 mg a day as an outpatient. Had 1 value of 8% as a POC test. This is probably spurious. It did however unfortunately delay the patient's total shoulder arthroplasty for about a month. Last hemoglobin A1c 6.6% in February of this year. Repeated, shows reasonable control 5.9%. Blood sugar control here has been adequate with low dose SSI. 06/06/25 06/07/25 06/07/25 20:39 07:45 11:26 POC Whole Bld Glucose 169 117 115 06/07/25 16:34 POC Whole Bld Glucose 90 Holding glipizide for this admission. (3) Parkinsonian features: Impression: Chronic tremor. He is currently on a Sinemet trial for 3 mo through his neurologist, Dr Karen Cesar in [place]. I have restarted home propranolol as well as home Sinemet. Dr Cesar wanted some labs drawn. I have ordered these for the patient. . CRP is 2.5 and ESR is also elevated. these will need repeat when patient is not acutely ill. TSH WNL. majority are sendout labs, discussed available results with patient. Ordered : B12, methylmalonic acid, TSH, ESR, CRP, Celiac panel, B6, Vit E level. . (4) Essential hypertension, benign: Impression: I have resumed home meds Hydrochlorothiazide, 25 mg daily, propranolol LA 120 mg daily. Selected Entries 06/06/25 00:06 06/06/25 07:35 06/06/25 16:12 Pulse Rate [Radial] 53 L 56 L 56 L Blood Pressure [Left Radial artery] 152/75 H 153/81 H 159/84 H (5) Hyperlipidemia: Impression: Have resumed home statin.Lipitor 40 mg daily. This patient's diagnosis and treatment plan was discussed this AM with attending physician as a part of multi disciplinary rounding meeting I have spent 26 minutes in the care of this patient today. This includes time [id number], review of laboratory studies . Monitoring the patient's signs symptoms, evaluation of medication effectiveness and patient's response to treatment.
[2025-06-08 07:20] LABS: BUN - BLOOD UREA NITROGEN 12.0 mg/dL (6-20); CARBON DIOXIDE - CO2 27.0 mmol/L (21-32); CREATININE 0.8 mg/dL (0.6-1.3); GFR - MDRD 94.0 (>89)
[2025-06-08 07:23] LABS: HCT - HEMATOCRIT 30.3 % (42.0-52.0); HGB - HEMOGLOBIN 10.3 g/dL (14.0-18.0); MEAN PLATELET VOLUME 10.6 fL (7.4-11.4); NRBC ABSOLUTE COUNT (AUTO) 0.00 x10^3/uL; NUCLEATED RED BLOOD CELLS AUTO 0.0 /100WBC; PLT - PLATELET COUNT 210 10^3/uL (130-450); RED CELL DISTRIBUTION WIDTH 13.5 % (12.0-15.0)
[2025-06-08] MEDS: LACTOBACILLUS RHAMNOSUS GG CAPSULE PO SCH (09:31)
[2025-06-08 11:09] LABS: IMMUNOGLOBULIN A (IGA) 189 mg/dL (61-437); IMMUNOGLOBULIN G (IGG) 926 mg/dL (603-1613); IMMUNOGLOBULIN M (IGM) 56 mg/dL (15-143)
--- NOTE | 2025-06-08 14:05 | Discharge Summary ---
Discharge Summary Admit Date: 05/03/25 Discharge Date: 06/08/25 Discharging Provider: Zora Murphy PA-C Primary Care Provider: PATRICIA Momin Code Status: Do Not Attempt Resuscitation DIAGNOSES Discharge Diagnoses with Status of Each Condition: Right prosthetic shoulder joint infection, treated Type 2 diabetes, A1c 5.9% Parkinsonian features, workup in process Essential hypertension, chronic and controlled Hyperlipidemia, chronic and controlled HPI History of Present Illness: 04/03/2025: Right reverse total shoulder arthroplasty 05/20/2025: Revision of right shoulder arthroplasty 06/03/2025: Right shoulder irrigation and debridement 79-year-old male with past medical history of diabetes, hypertension, hyperlipidemia also with essential tremor status post above listed procedures, was seen in the orthopedics office as an outpatient yesterday. Was complaining of persistent serosanguineous drainage from the inferior aspect of the incision, saturating multiple bandages throughout the day also with subjective fever and chills. Was treated as an outpatient with 3 days of Keflex without any change to his symptomatology. After extensive discussions with the patient and his patient elected to proceed with operative washout of this prosthetic joint. This joint arthroplasty has been complicated by failure of the hardware necessitating revision of the arthroplasty approximately 6 weeks after the index procedure. This patient was in his usual state of health prior to an injury at the end of December of this year. He tripped and fell while carrying a bag of weeds sustaining a right rotator cuff injury. Was followed up with orthopedics and ultimately elected to undergo reverse total shoulder arthroplasty. Proceeded with the usual course of outpatient physical therapy but was having a lot of grinding of the joint, therefore went back to see Dr. Bustillo who obtained x-rays and noticed the failure of the prosthesis. He was then taken for revision but postoperatively had a significant amount of bleeding from the incision and then ultimately started to have serosanguineous drainage. This patient has a history of diabetes, and his arthroplasty was delayed by 1 month due to a [id number] A1c of 8.8. His hemoglobin A1c has historically been below 7. For his diabetes he takes glipizide 2.5 mg a day. He does not take metformin as he was concerned about side effects of loose stools and therefore has never tried the drug. His states that he does not follow a diabetic diet at home. Patient denies having a POLST. When asked about his CODE STATUS he said that "if the Lord wants to take me I want to go. "His Kylie is his surrogate medical decision maker. He also has 2 sons, Braulio [place] His son Braulio is a physician assistant professor of criminal justice. He lives at home with his and son. He does not smoke or drink alcohol. CONSULTS | PROCEDURES Procedures: Right shoulder irrigation debridement: 06/03/2025. HOSPITAL COURSE Hospital Course: 79-year-old male who had presented to orthopedics with increased drainage from incision from previously revised right reverse total shoulder arthroplasty. He was taken to the operating room on hospital day 1 where washout was performed and incisional wound VAC was placed. He was transferred to the floor postoperatively and PICC line was placed on hospital day 2. Culture subsequently did not grow any organisms. Clinically, at the time of operative washout this patient did have an infection. Orthopedics requested treatment of this prosthetic joint infection for 6 weeks. Patient was managed on vancomycin and Rocephin while admitted to the hospital and will be discharged on daily daptomycin and Rocephin treatments. Most common pathogens are C acnes and staph. Patient was discharged home with PICC line in place and plans to attend the outpatient infusion center for daily antibiotics. Several hours later he returned to the emergency department because his incisional VAC had a drainage canister that was full. He had had minimal to no drainage from the incisional VAC the entire 5 days he was in the hospital. I was able to obtain replacement canisters for the back and this was replaced. He will be seeing orthopedics in the morning, and I advised him that should the canister fill overnight to remove the sponge and replace the dressing with gauze and tape. ALLERGIES Allergies Allergy/AdvReac Type Severity Reaction Status Date / Time No Known Drug Allergies Allergy Verified 06/08/25 17:47 MEDICATIONS Ambulatory Orders Medication Instructions Recorded Confirmed aspirin 81 mg tablet,delayed 81 mg PO DAILY 06/17/24 1 08/03/24 release (Adult Low Dose Aspirin) multivitamin (Daily Multi-Vitamin 1 tab PO DAILY 06/1706/03/25 tablet) atorvastatin 40 mg tablet (Lipitor) 40 mg PO QPM #90 t abs 09/02/24 06/03/25 hydrochlorothiazide 25 mg tablet 25 mg PO DAILY #90 ta bs 09/02/24 06/03/25 propranolol 120 mg capsule,24 120 mg PO DAILY #90 caps 09/02/24 06/03/25 hr,extended release (Inderal LA) vitamin D3 125 mcg (5,000 1 cap PO DAILY 03/16/2505/10 unit)-vitamin K2 100 mcg capsule carbidopa 25 mg-levodopa 100 mg 1 tab PO TID 06/03/25 06/03/25 tablet citalopram 20 mg tablet 20 mg PO DAILY 06/03/2505/10 glipizide 2.5 mg tablet, extended 2.5 mg PO DAILY 05/1006/03/25 release 24 hr Lactobacillus rhamnosus GG 10 1 cap PO DAILY #30 caps 06/08/25 billion cell capsule (Culturelle) acetaminophen 500 mg tablet 1,000 mg (2 x 500 mg) PO T ID #90 06/08/25 (Tylenol Extra Strength) tabs daptomycin 500 mg intravenous 500 mg IV push (test dos e) DAILY 06/08/25 solution #36 ea gabapentin 100 mg capsule 100 mg PO TID #90 caps 06/08 oxycodone 5 mg tablet 5 mg PO Q4HR PRN Pain 5 to 7 #30 06/08/25 tabs PHYSICAL EXAM AT DISCHARGE Vital Signs: Vital Signs x48h Temp Pulse Resp BP Pulse Ox 06/08/25 15:05 36.4 C L 59 L 16 157/75 H 98 Physical Exam Other/Comments: General Appearance: positive No acute distress and Alert Eyes Bilateral: positive Normal inspection ENT: positive ENT inspection nml Neck: positive Nml inspection Respiratory: positive No respiratory distress and Breath sounds nml Cardiovascular: positive Regular rate & rhythm Abdomen: positive No distention Skin: positive Color nml Extremities: positive Other (prevena vac in place, ecchymosis and swelling in the right shoulder, down onto right upper arm. ) Neurologic/Psychiatric: positive Oriented x3 LABS 06/08/25 06:30 06/08/25 06:30 DIAGNOSTIC IMAGING Diagnostic Imaging Results Comments: R shoulder XR. 06/02. Persistent air in the soft tissue 13d post op FOLLOW UP Follow Up: Orthopedics as scheduled. PCP 7-10 days. TIME SPENT Time Spent in Discharge (Minutes): 45 Discharge Plan Discharge Patient Disposition: Home, Self Care Prescriptions: New acetaminophen [Tylenol Extra Strength] 500 mg Tablet 1,000 mg PO TID Qty: 90 0RF daptomycin 500 mg Recon Soln 500 mg IV push (test dose) DAILY Qty: 36 0RF gabapentin 100 mg Capsule 100 mg PO TID Qty: 90 0RF Culturelle 10 billion cell Capsule 1 cap PO DAILY Qty: 30 0RF oxycodone 5 mg Tablet 5 mg PO Q4HR PRN (Reason: Pain 5 to 7) Qty: 30 0RF Continued multivitamin [Daily Multi-Vitamin] Tablet 1 tab PO DAILY aspirin [Adult Low Dose Aspirin] 81 mg tablet,delayed release (DR/EC) 81 mg PO DAILY vitamin D3-vitamin K2 125 mcg (5,000 unit)-100 mcg capsule 1 cap PO DAILY carbidopa-levodopa 25-100 mg tablet 1 tab PO TID citalopram 20 mg tablet 20 mg PO DAILY glipizide 2.5 mg tablet extended release 24hr 2.5 mg PO DAILY Rx Instructions: Take 1 tablet by mouth once a day hydrochlorothiazide 25 mg tablet 25 mg PO DAILY Qty: 90 4RF propranolol [Inderal LA] 120 mg capsule,extended release 24 hr 120 mg PO DAILY Qty: 90 4RF atorvastatin [Lipitor] 40 mg tablet 40 mg PO QPM Qty: 90 4RF Discontinued oxycodone-acetaminophen 10-325 mg tablet 1 tab PO Q8H PRN (Reason: pain) Qty: 30 0RF Activity Restrictions: Activity as Tolerated Activity Restrictions/Additional Instructions: resume PT next week. Health Concerns: You are being discharged home to continue treatment for an infection in your prosthetic shoulder joint. This is a serious condition that requires several weeks of antibiotic treatment and close follow-up. Please read these instructions carefully. Your Antibiotic Treatment You will receive intravenous (IV) antibiotics at an outpatient infusion center. This treatment is essential for clearing the infection from your shoulder joint. [1] * Your antibiotic treatment will continue for6 weekstotal, depending on your specific infection and how well you respond to treatment * You must attendall scheduled infusion appointments- missing doses can lead to treatment failure * The infusion center staff will monitor you during each treatment * After the IV portion is complete, you may be switched to oral antibiotics to complete your treatment course[1-2] What to Watch For Contact your doctor immediately if you experience: * Fever(temperature above 100.4F or 38C) * Increased pain, redness, or swellingin your shoulder * Drainage or fluidcoming from your surgical incision- drainage in the wound vac is expected * New or worsening weaknessin your arm * Allergic reactionsto antibiotics (rash, hives, difficulty breathing, swelling of face or throat) * Severe diarrhea(especially if bloody or watery), which could indicate a serious intestinal infection[2] * Nausea or vomitingthat prevents you from eating or drinking * Anyside effects from antibioticsthat concern you Follow-Up Care * You will need regular appointments with your orthopedic surgeon and infectious disease doctor to monitor your progress[1] * Blood testswill be performed periodically to check inflammation levels and ensure the infection is improving * Keep all scheduled appointments - they are critical for successful treatment * Your doctors will use your symptoms and blood test results to determine when treatment can be completed[5] Activity and Wound Care * Follow your surgeon's specific instructions about shoulder movement and activity restrictions * Keep your surgical incision clean and dry * Do not remove any dressings unless instructed by your healthcare team * Attend physical therapy appointments if prescribed Medication Management * Continue all other prescribed medications unless told otherwise * Inform the infusion center staff aboutall medicationsyou take, including [id number] drugs and supplements * Some antibiotics can interact with other medications or cause side effects that need monitoring[3] Important Reminders * Do not stop treatment early, even if you feel better - completing the full course of antibiotics is essential to prevent the infection from returning * The infection center staff will teach you about your IV line care if you have a PICC line or other central catheter * Maintain good nutrition and hydration to support healing * Avoid smoking, as it can interfere with infection healing After hours/emergency: Go to the nearest emergency department or call 911 Treating a prosthetic joint infection requires patience and commitment to the treatment plan. Your healthcare team is here to support you throughout this process. If your wound VAC starts to alarm and it is leaking please call orthopedics. Quite frankly if it starts to leak, at this point, it can probably just be removed and the incision can be left open to air. If the batteries run out and the wound VAC, just replace the batteries Remember that if you have fevers, pain that is out of control, or any other problem that you do not know how to solve, and it is after hours you can come to the emergency department, otherwise, call orthopedics. You have done very well with pain control while you have been here. You are requiring very few narcotic pain medications. You can resume taking ibuprofen when you get home. I have had you on some IV ibuprofen while you has been here. The gabapentin that you are taking 3 times a day is probably also helping to control your pain. I have prescribed this for you to use at home. I ordered all the labs that Dr. Cesar wanted done. I am going to forward a copy of my discharge summary to her as well as to your primary care. You need to have your ESR and CRP labs repeated, maybe at the end of your treatment for your joint infection. These are elevated but they are elevated because of the joint infection. OK to go to PT next week, although they probably will be more gentle with you than normal. Print Language: Indonesian Patient Instructions: Reverse Shoulder Replacement Follow-up Care: eJnnifer Mccray ARNP [Primary Care Provider, Family Practice] Celestino Bustillo DO [Provider Admit Priv/Credential, Orthopedics] Vitals documented within 30 minutes of discharge?: Yes (Vital signs taken at 1505 and charted on discharge task list. )
[2025-06-08 16:03] VITALS: BP 157/75; TEMP 97.5; O2SAT 98
[2025-06-10 05:10] LABS: DEAMIDATED GLIADIN IGA 4 units (0-19); DEAMIDATED GLIADIN IGG 3 units (0-19); ENDOMYSIAL IGA Negative (Negative); T-TRANSGLUTAMINASE (TTG) IGA 2 U/mL (0-3); T-TRANSGLUTAMINASE (TTG) IGG 4 U/mL (0-5)
[2025-06-12 21:08] LABS: VITAMIN E (ALPHA TOCOPHEROL) 7.2 mg/L (9.0-29.0); VITAMIN E (GAMMA TOCOPHEROL) 1.2 mg/L (0.5-4.9)
== END 2025-06-08 15:27 | disposition home or self-care (01) | DRG 560 ==
LOC: SDS 06:30 → MS2 10:07
PROVIDERS: ADMIT Physician Assistant Medical; ATTEND Physician Assistant Medical
DX: G20.C Parkinsonism, unspecified; Z79.82 Long term (current) use of aspirin; Z91.81 History of falling; I10 Essential (primary) hypertension; Z66 Do not resuscitate; T84.59XA Infection and inflammatory reaction due to other internal joint prosthesis, initial encounter; Z96.611 Presence of right artificial shoulder joint; Z79.84 Long term (current) use of oral hypoglycemic drugs; Y83.8 Other surgical procedures as the cause of abnormal reaction of the patient, or of later complication, without mention of misadventure at the time of the procedure; E78.5 Hyperlipidemia, unspecified; E11.42 Type 2 diabetes mellitus with diabetic polyneuropathy; M96.842 Postprocedural seroma of a musculoskeletal structure following a musculoskeletal system procedure